=== PATIENT | female | born 1980 | race Caucasian/White ===

== ENCOUNTER 2021-06-19 20:53 | Emergency (ER) | payer MEDICAID, OTHER ==
[~2021-06-19] VITALS: Ht 165.1 cm; Wt 68.0 kg
[2021-06-19] MEDS ORDERED: methylPREDNISolone SOD SUCC 125 MG/2 ML VL IV ONE (21:00)
[2021-06-19] MEDS ORDERED: MAGNESIUM SULFATE 1GM/100ML 200 ML IV ONE (21:02)
[2021-06-19] MEDS ORDERED: IPRATROPIUM BROM 0.5 MG/2.5ML INH SOL NEB ONE ×2 (21:15)
[2021-06-19] MEDS ORDERED: ALBUTEROL SULF 2.5 MG/0.5ML(0.5%) NEB SOLN NEB ONE ×2 (21:15)
[2021-06-19 21:37] LABS: Basophils # (auto) 0.1 10 ^3/uL (0-0.2); Basophils % (auto) 1.2 % (0.0-2.0); Eosinophils # (auto) 1.4 10 ^3/uL (0-0.8); Eosinophils % (auto) 13.9 % (0.0-7.0); Hematocrit 42.6 % (36.0-46.0); Hemoglobin 14.1 g/dL (12.2-16.2); Lymphocytes # (auto) 2.7 10 ^3/uL (0.4-5.4); Lymphocytes % (auto) 26.6 % (10.0-50.0); Mean Corpuscular Hemoglobin 29.7 pg (28.0-32.0); Mean Corpuscular Hgb Conc. 33.1 g/dL (32.0-36.0); Mean Corpuscular Volume 89.7 fL (80.0-100.0); Monocytes # (auto) 0.7 10 ^3/uL (0-1.3); Monocytes % (auto) 6.8 % (0.0-12.0); Neutrophils # (auto) 5.2 10 ^3/uL (1.6-8.6); Neutrophils % (auto) 51.5 % (37.0-80.0); Nucleated Red Blood Cells % 0.1 %; Red Blood Cells 4.75 10^6/uL (4.0-5.20); Red Cell Distribution Width 14.7 % (11.8-14.3); White Blood Cell 10.2 10^3/uL (4.4-10.8)
[2021-06-19 21:43] LABS: INR 0.99 (0.9-1.15)
[2021-06-19] MEDS ORDERED: ACETAMINOPHEN 325 MG TAB PO ONE (21:45)
[2021-06-19] MEDS ORDERED: KETOROLAC TROMETH 30 MG/ML 1ML VIAL IV ONE (21:45)
[2021-06-19 21:50] LABS: Calcium 8.8 mg/dL (8.5-10.1); Chloride 102 mmol/L (98-107); Potassium 3.3 mmol/L (3.5-5.1); Sodium 139 mmol/L (136-145)
[2021-06-19 21:59] LABS: Alanine Aminotransferase 23 U/L (13-56); Albumin 3.6 g/dL (3.4-5.0); Alkaline Phosphatase 99 U/L (45-117); Anion Gap 5 (5-15); Aspartate Aminotransferase 15 U/L (15-37); BUN/Creatinine Ratio 7.8; Blood Urea Nitrogen 6 mg/dL (7-18); Carbon Dioxide 32 mmol/L (21-32); GFR African American 106 mL/min; GFR Non-African American 87 mL/min; Glucose 135 mg/dL (74-106)
[2021-06-19 22:00] LABS: Bilirubin, Total 0.3 mg/dL (0.2-1.0); Magnesium 2.2 mg/dL (1.6-2.6); Total Protein 7.5 g/dL (6.4-8.2)
[2021-06-20] MEDS: MAGNESIUM SULFATE 1GM/100ML 100 ML IV SCH ×2 (00:01→00:02)
[2021-06-20 01:15] VITALS: BP 141/88
== END 2021-06-20 02:05 | disposition home or self-care (01) ==
LOC: EDBD 20:53 → ER 20:53
DX: R06.02 Shortness of breath (principal); J45.909 Unspecified asthma, uncomplicated
CPT/HCPCS: 36415; 36600; 71045; 80053; 82805; 83735; 84484; 84702; 85025; 85610; 94640; 94660; 96365; 96366; 96375; 99284; J1885; J2930; J3475

== ENCOUNTER 2022-03-28 06:54 | Emergency (ER) | payer OTHER ==
[~2022-03-28] VITALS: Ht 157.5 cm; Wt 72.6 kg
[2022-03-28 07:26] LABS: Basophils # (auto) 0.1 10 ^3/uL (0-0.2); Basophils % (auto) 0.6 % (0.0-2.0); Eosinophils # (auto) 1.3 10 ^3/uL (0-0.8); Eosinophils % (auto) 13.2 % (0.0-7.0); Hematocrit 39.5 % (36.0-46.0); Hemoglobin 13.2 g/dL (12.2-16.2); Lymphocytes % (auto) 20.4 % (10.0-50.0); Mean Corpuscular Hemoglobin 28.5 pg (28.0-32.0); Mean Corpuscular Hgb Conc. 33.3 g/dL (32.0-36.0); Mean Corpuscular Volume 85.7 fL (80.0-100.0); Monocytes # (auto) 0.9 10 ^3/uL (0-1.3); Neutrophils # (auto) 5.6 10 ^3/uL (1.6-8.6); Neutrophils % (auto) 56.8 % (37.0-80.0); Red Blood Cells 4.61 10^6/uL (4.0-5.20); Red Cell Distribution Width 14.3 % (11.8-14.3); White Blood Cell 9.8 10^3/uL (4.4-10.8)
[2022-03-28] MEDS ORDERED: IPRATROPIUM BROM 0.5 MG/2.5ML INH SOL NEB ONE (07:45)
[2022-03-28] MEDS ORDERED: KETOROLAC TROMETH 30 MG/ML 1ML VIAL IV ONE (07:45)
[2022-03-28] MEDS ORDERED: ALBUTEROL SULF 2.5 MG/0.5ML(0.5%) NEB SOLN NEB ONE (07:45)
[2022-03-28] MEDS ORDERED: DexAMETHasone SOD PHOS 10MG/1ML VIAL INJ IV ONE (07:45)
[2022-03-28 07:48] LABS: INR 0.96 (0.9-1.15)
[2022-03-28 07:49] LABS: Albumin 3.3 g/dL (3.4-5.0); BUN/Creatinine Ratio 14.1; Calcium 8.2 mg/dL (8.5-10.1); Magnesium 2.1 mg/dL (1.6-2.6); Potassium 5.5 mmol/L (3.5-5.1)
[2022-03-28 07:52] LABS: Bilirubin, Total 0.4 mg/dL (0.2-1.0); Total Protein 6.8 g/dL (6.4-8.2)
[2022-03-28] MEDS ORDERED: MORPHINE SULFATE INJ 2 MG/ml SYRG IV ONE (08:45)
[2022-03-28] MEDS: MAGNESIUM SULFATE 1GM/100ML 100 ML IV SCH ×2 (08:58→10:00)
[2022-03-28] MEDS ORDERED: AZITHROMYCIN 500MG/ 250ML 250 ML IV ONE (09:00)
[2022-03-28] MEDS ORDERED: ALBU108A5 IN ×2 (10:11→12:26)
[2022-03-28] MEDS ORDERED: AZIT250T9 PO ×2 (10:11→12:26)
[2022-03-28] MEDS ORDERED: PRED20TA2 PO ×2 (10:13→12:26)
[2022-03-28 12:00] VITALS: BP 126/71
[2022-03-28] MEDS ORDERED: TIOT17SP IN (12:26)
[2022-03-28] MEDS ORDERED: FLUT1AER6 IN (12:37)
== END 2022-03-28 13:05 | disposition home or self-care (01) ==
LOC: ER 06:54 → EDBD 06:54 → ER 13:05
DX: J45.901 Unspecified asthma with (acute) exacerbation (principal); Z20.822 Contact with and (suspected) exposure to COVID-19
CPT/HCPCS: 36415; 36600; 71045; 80053; 82805; 83735; 83880; 84484; 85025; 85610; 85730; 87426; 93005; 94640; 94660; 96365; 96366; 96368; 96375; 99285; J0456; J1100; J1885; J2270; J3475; J7644

== ENCOUNTER 2022-07-09 19:27 | Emergency (ER) | payer OTHER ==
[~2022-07-09] VITALS: Ht 160 cm; Wt 72.5 kg
[~2022-07-09 19:27] MED LIST: ALBU108A5 IN; AZIT250T9 PO; FLUT1AER6 IN; PRED20TA2 PO; TIOT17SP IN
[2022-07-09] MEDS ORDERED: IPRATROPIUM BROM 0.5 MG/2.5ML INH SOL NEB ONE (20:30)
[2022-07-09] MEDS ORDERED: ALBUTEROL SULF 2.5 MG/0.5ML(0.5%) NEB SOLN NEB ONE (20:30)
[2022-07-09] MEDS ORDERED: DexAMETHasone SOD PHOS 10MG/1ML VIAL INJ IV ONE (20:30)
[2022-07-09] MEDS ORDERED: MAGNESIUM SULFATE 1GM/100ML 100 ML IV ONE (20:30)
[2022-07-09 20:43] LABS: Basophils # (auto) 0.1 10 ^3/uL (0-0.2); Basophils % (auto) 0.6 % (0.0-2.0); Eosinophils # (auto) 1.3 10 ^3/uL (0-0.8); Eosinophils % (auto) 9.4 % (0.0-7.0); Hematocrit 41.2 % (36.0-46.0); Lymphocytes # (auto) 2.4 10 ^3/uL (0.4-5.4); Lymphocytes % (auto) 17.7 % (10.0-50.0); Mean Corpuscular Hemoglobin 29.2 pg (28.0-32.0); Mean Corpuscular Hgb Conc. 33.9 g/dL (32.0-36.0); Mean Corpuscular Volume 86.2 fL (80.0-100.0); Monocytes # (auto) 0.9 10 ^3/uL (0-1.3); Monocytes % (auto) 7.1 % (0.0-12.0); Neutrophils # (auto) 8.7 10 ^3/uL (1.6-8.6); Neutrophils % (auto) 65.2 % (37.0-80.0); Red Blood Cells 4.78 10^6/uL (4.0-5.20); Red Cell Distribution Width 13.9 % (11.8-14.3); White Blood Cell 13.4 10^3/uL (4.4-10.8)
[2022-07-09 20:55] LABS: Albumin 3.7 g/dL (3.4-5.0); Calcium 8.7 mg/dL (8.5-10.1); Potassium 3.8 mmol/L (3.5-5.1)
[2022-07-09 20:59] LABS: BUN/Creatinine Ratio 13.2; Bilirubin, Total 0.5 mg/dL (0.2-1.0); Total Protein 6.8 g/dL (6.4-8.2)
[2022-07-09 23:02] VITALS: BP 119/81
== END 2022-07-09 23:15 | disposition home or self-care (01) ==
LOC: EDBD 19:27 → ER 19:31
DX: J45.901 Unspecified asthma with (acute) exacerbation (principal); G89.29 Other chronic pain; M54.9 Dorsalgia, unspecified
CPT/HCPCS: 36415; 71045; 80053; 85025; 94640; 96365; 96375; 99284; J1100; J3475; J7644

== ENCOUNTER 2023-07-23 10:49 | Inpatient (IN) | payer OTHER ==
[2023-07-22] MEDS: SODIUM CHLORIDE 0.9% 1,000 ML IV SCH (23:05)
[~2023-07-23] VITALS: Ht 157.5 cm; Wt 81.7 kg
[~2023-07-23 10:49] MED LIST changes: +AZIT-43 PO; -AZIT250T9 PO
[2023-07-23] MEDS ORDERED: SODIUM CHLORIDE 0.9% 1,000 ML IV ONE (11:30)
[2023-07-23] MEDS ORDERED: ONDANSETRON HCL 4 MG/2 ML VIAL IV ONE (11:30)
[2023-07-23] MEDS ORDERED: PANTOPRAZOLE 40 MG/10 ML VIAL INJ IV ONE (11:30)
[2023-07-23] MEDS ORDERED: HYDROmorphone HCL 2 MG/ML VL/or syr IV ONE (11:30)
[2023-07-23] MEDS ORDERED: LORazepam 2MG/ML-1ML VIAL IV ONE (11:30)
[2023-07-23 12:06] LABS: Basophils # (auto) 0 10 ^3/uL (0-0.2); Eosinophils # (auto) 0 10 ^3/uL (0-0.8); Lymphocytes # (auto) 0.9 10 ^3/uL (0.4-5.4); Monocytes # (auto) 0.7 10 ^3/uL (0-1.3)
[2023-07-23 12:08] LABS: Basophils % (auto) 0.3 % (0.0-2.0); Eosinophils % (auto) 0.2 % (0.0-7.0); Hematocrit 45.4 % (36.0-46.0); Lymphocytes % (auto) 8.2 % (10.0-50.0); Mean Corpuscular Hemoglobin 30.8 pg (28.0-32.0); Mean Corpuscular Hgb Conc. 35.3 g/dL (32.0-36.0); Mean Corpuscular Volume 87.1 fL (80.0-100.0); Monocytes % (auto) 6.7 % (0.0-12.0); Neutrophils # (auto) 9.1 10 ^3/uL (1.6-8.6); Neutrophils % (auto) 84.6 % (37.0-80.0); Red Blood Cells 5.21 10^6/uL (4.0-5.20); Red Cell Distribution Width 14.3 % (11.8-14.3); White Blood Cell 10.8 10^3/uL (4.4-10.8)
[2023-07-23 12:21] LABS: INR 1.15 (0.9-1.15)
[2023-07-23 12:27] LABS: Chloride 87 mmol/L (98-107); Potassium 3.1 mmol/L (3.5-5.1); Sodium 129 mmol/L (136-145)
[2023-07-23 12:28] LABS: Anion Gap 14 (5-15); Calcium 9.6 mg/dL (8.7-10.4); Carbon Dioxide 28 mmol/L (20-30)
[2023-07-23 12:33] LABS: BUN/Creatinine Ratio 8.6 (10.0-20.0); Blood Alcohol < 3.0 mg/dL (<10); Blood Urea Nitrogen 5 mg/dL (9-23); Glucose 97 mg/dL (74-106); Lipase 119 U/L (12-53); Magnesium 1.5 mg/dL (1.6-2.6)
[2023-07-23] MEDS ORDERED: IOHEXOL 300 MG/ML 100ML BOTTLE IJ ONE (13:19)
[2023-07-23] MEDS ORDERED: OMNIPAQUE 12mg/ml 500ml ORAL SOLUTION PO ONE (13:19)
[2023-07-23] MEDS ORDERED: POTASSIUM CHL 20MEQ/100ML 100 ML IV ONE (15:15)
[2023-07-23] MEDS ORDERED: POTASSIUM CHL 20 Meq TABLET PO ONE (15:15)
[2023-07-23] MEDS ORDERED: metroNIDAZOLE 500MG/100ML 100 ML IV ONE (16:30)
[2023-07-23] MEDS ORDERED: levoFLOXacin 750MG 150 ML IV ONE (16:30)
[2023-07-23] MEDS ORDERED: IOHEXOL 350 MG/ML 100ML IJ ONE (16:37)
[2023-07-23] MEDS ORDERED: D5W/SOD CHL 0.45%/KCL 20MEQ 1,000 ML IV ONE (17:30)
[2023-07-23] MEDS ORDERED: MORPHINE SULFATE 4 MG/ML SYR/VIAL IV ONE (19:30)
[2023-07-23 19:32] VITALS: PULSE 118; RESP 20; O2SAT 97
[2023-07-23] MEDS: ONDANSETRON HCL 4 MG/2 ML VIAL IV PRN (19:37)
[2023-07-23] MEDS ORDERED: MORPHINE SULFATE INJ 2 MG/ml SYRG IV PRN (20:00)
[2023-07-23] MEDS: HYDROmorphone HCL 2 MG/ML VL/or syr IV PRN (22:47)
[2023-07-23 23:20] VITALS: PULSE 88; RESP 13; O2SAT 90
[2023-07-24] MEDS: PIPERACILLIN-TAZOB 3.375GM 100 ML IV SCH ×3 (01:41→22:00)
[2023-07-24] MEDS: HYDROmorphone HCL 2 MG/ML VL/or syr IV PRN ×11 (01:42→22:11)
[2023-07-24] MEDS: SODIUM CHLOR 0.9% PF (SALINE LOCK) 10ML VIAL/SYR IV SCH ×3 (01:43→22:00)
[2023-07-24] MEDS: ONDANSETRON HCL 4 MG/2 ML VIAL IV PRN ×2 (04:00→17:36)
[2023-07-24 04:45] LABS: Amphetamine Screen, Urine Neg (NEGATIVE); Barbiturate Scree,Urine Neg (NEGATIVE); Benzodiazephine Screen, Urine Pos (NEGATIVE); Cocaine Screen, Urine Neg (NEGATIVE)
[2023-07-24 04:46] LABS: Cannabinoid Screen, Urine Pos (NEGATIVE); Opiate Scree,Urine Pos (NEGATIVE); Phencyclidine Screen, Urine Neg (NEGATIVE)
[2023-07-24 04:49] LABS: Urine Bacteria NONE SEEN /hpf (None Seen); Urine Blood Negative /uL (Negative); Urine Clarity Clear (Clear); Urine Color Colorless (Yellow); Urine Protein, UAD Negative (Negative); Urine Specific Gravity 1.011 (1.001-1.035); Urine Urobilinogen Normal (Negative); Urine WBC 1 /hpf (0 - 5); Urine pH 6.5 (5.0-8.0)
[2023-07-24 06:42] LABS: Basophils # (auto) 0 10 ^3/uL (0-0.2); Basophils % (auto) 0.5 % (0.0-2.0); Eosinophils # (auto) 0.1 10 ^3/uL (0-0.8); Eosinophils % (auto) 1.2 % (0.0-7.0); Hematocrit 37.7 % (36.0-46.0); Hemoglobin 13.2 g/dL (12.2-16.2); Lymphocytes # (auto) 1.8 10 ^3/uL (0.4-5.4); Lymphocytes % (auto) 19.2 % (10.0-50.0); Mean Corpuscular Hemoglobin 30.7 pg (28.0-32.0); Mean Corpuscular Hgb Conc. 34.9 g/dL (32.0-36.0); Mean Corpuscular Volume 87.9 fL (80.0-100.0); Monocytes # (auto) 0.8 10 ^3/uL (0-1.3); Monocytes % (auto) 9.3 % (0.0-12.0); Neutrophils # (auto) 6.4 10 ^3/uL (1.6-8.6); Neutrophils % (auto) 69.8 % (37.0-80.0); Red Blood Cells 4.29 10^6/uL (4.0-5.20); Red Cell Distribution Width 14.1 % (11.8-14.3); White Blood Cell 9.1 10^3/uL (4.4-10.8)
[2023-07-24 07:08] LABS: Alanine Aminotransferase 43 U/L (7-40); Albumin 3.8 g/dL (3.2-4.8); Alkaline Phosphatase 57 U/L (46-116); Anion Gap 9 (5-15); Aspartate Aminotransferase 64 U/L (13-40); Bilirubin, Total 0.7 mg/dL (0.2-1.0); Calcium 8.5 mg/dL (8.7-10.4); Carbon Dioxide 29 mmol/L (20-30); Chloride 96 mmol/L (98-107); Glucose 120 mg/dL (74-106); Total Protein 5.5 g/dL (5.7-8.2)
[2023-07-24 07:15] LABS: Sodium 134 mmol/L (136-145)
[2023-07-24 07:16] LABS: BUN/Creatinine Ratio 8.1 (10.0-20.0); Blood Urea Nitrogen < 5 mg/dL (9-23); Potassium 2.9 mmol/L (3.5-5.1)
[2023-07-24 07:45] VITALS: PULSE 84; RESP 18; O2SAT 97
[2023-07-24] MEDS ORDERED: POTASSIUM CHL 20MEQ/100ML 100 ML IV ONE (08:30)
[2023-07-24] MEDS ORDERED: POTASSIUM CHL 20MEQ/100ML 100 ML IV SCH (09:15)
[2023-07-24] MEDS ORDERED: HYDROmorphone HCL 2 MG/ML VL/or syr IV ONE (10:30)
[2023-07-24] MEDS: SODIUM CHLORIDE 0.9% 1,000 ML IV SCH ×2 (11:28→17:41)
[2023-07-24] MEDS: MAGNESIUM SULFATE 1GM/100ML 100 ML IV SCH ×2 (11:44→14:00)
[2023-07-24] MEDS ORDERED: POTASSIUM CHL 20MEQ/50ML 50 ML IV ONE (12:22)
[2023-07-24] MEDS ORDERED: metroNIDAZOLE 500MG/100ML 100 ML IV ONE (12:26)
[2023-07-24] MEDS ORDERED: MEPERIDINE HCL (25 MG/ML) 1ML VIAL ONE (12:38)
[2023-07-24] MEDS ORDERED: fentaNYL CITRATE 100 MCG/2 ML VL ONE ×3 (12:38→12:47)
[2023-07-24] MEDS ORDERED: MIDAZOLAM HCL 2MG/2ML 2ml VIAL (1mg/ml) ONE (12:38)
[2023-07-24] MEDS ORDERED: HYDROmorphone HCL 2 MG/ML VL/or syr ONE (13:04)
[2023-07-24] MEDS ORDERED: SUGAMMADEX 200mg/2ml Vial (100MG/ML) IV ONE (14:09)
[2023-07-24 14:26] VITALS: PULSE 82; RESP 14; O2SAT 97
[2023-07-24] MEDS ORDERED: MIDAZOLAM HCL 2MG/2ML 2ml VIAL (1mg/ml) IV PRN (14:30)
[2023-07-24] MEDS ORDERED: MORPHINE SULFATE 4 MG/ML SYR/VIAL IV PRN (14:30)
[2023-07-24] MEDS ORDERED: ONDANSETRON HCL 4 MG/2 ML VIAL IV PRN (14:30)
[2023-07-24] MEDS ORDERED: LABETALOL HCL 5 MG/ML 4ML SYRINGE IV PRN (14:30)
[2023-07-24] MEDS ORDERED: KETOROLAC TROMETH 30 MG/ML 1ML VIAL IV ONE (14:30)
[2023-07-24] MEDS ORDERED: ePHEDrine SULFATE 50 MG/ML AMP IV PRN (14:30)
[2023-07-24] MEDS ORDERED: fentaNYL CITRATE 100 MCG/2 ML VL IV PRN (14:30)
[2023-07-24] MEDS ORDERED: NALOXONE HCL 0.4 MG/ML VIAL IV ONE (15:30)
[2023-07-24] MEDS ORDERED: HYDROmorphone HCL 2 MG/ML VL/or syr IV PRN (15:30)
[2023-07-24 17:00] VITALS: BP 137/95; PULSE 81; RESP 18; TEMP 98; O2SAT 94; O2SAT 96
[2023-07-24 20:00] VITALS: PULSE 94; RESP 18; O2SAT 2
[2023-07-24 22:00] VITALS: BP 134/88; PULSE 94; RESP 18; TEMP 98.7; O2SAT 95
[2023-07-25] VITALS (7 sets, daily range): BP systolic 136–154; BP diastolic 82–97; PULSE 72–98; RESP 16–22; TEMP 97.8–98.9; O2SAT 2–98
[2023-07-25] MEDS: HYDROmorphone HCL 2 MG/ML VL/or syr IV PRN ×10 (00:13→22:37)
[2023-07-25] MEDS: ONDANSETRON HCL 4 MG/2 ML VIAL IV PRN ×3 (01:03→15:10)
[2023-07-25] MEDS: PIPERACILLIN-TAZOB 3.375GM 100 ML IV SCH ×3 (05:32→22:00)
[2023-07-25] MEDS: SODIUM CHLOR 0.9% PF (SALINE LOCK) 10ML VIAL/SYR IV SCH ×3 (06:00→22:00)
[2023-07-25 07:03] LABS: Alanine Aminotransferase 35 U/L (7-40); Albumin 3.5 g/dL (3.2-4.8); Alkaline Phosphatase 57 U/L (46-116); Anion Gap 8 (5-15); Aspartate Aminotransferase 37 U/L (13-40); BUN/Creatinine Ratio 9.3 (10.0-20.0); Blood Urea Nitrogen 5 mg/dL (9-23); Carbon Dioxide 27 mmol/L (20-30); Chloride 103 mmol/L (98-107); Glucose 116 mg/dL (74-106); Magnesium 1.7 mg/dL (1.6-2.6); Potassium 3.2 mmol/L (3.5-5.1); Sodium 138 mmol/L (136-145)
[2023-07-25 07:04] LABS: Bilirubin, Total 0.7 mg/dL (0.2-1.0); Total Protein 5.1 g/dL (5.7-8.2)
[2023-07-25 07:43] LABS: Basophils # (auto) 0 10 ^3/uL (0-0.2); Basophils % (auto) 0.1 % (0.0-2.0); Eosinophils # (auto) 0 10 ^3/uL (0-0.8); Hematocrit 37.1 % (36.0-46.0); Hemoglobin 12.7 g/dL (12.2-16.2); Lymphocytes # (auto) 0.9 10 ^3/uL (0.4-5.4); Lymphocytes % (auto) 7.8 % (10.0-50.0); Mean Corpuscular Hemoglobin 30.7 pg (28.0-32.0); Mean Corpuscular Hgb Conc. 34.4 g/dL (32.0-36.0); Mean Corpuscular Volume 89.2 fL (80.0-100.0); Monocytes # (auto) 0.8 10 ^3/uL (0-1.3); Neutrophils # (auto) 10.2 10 ^3/uL (1.6-8.6); Neutrophils % (auto) 85.1 % (37.0-80.0); Nucleated Red Blood Cells % 0.1 %; Red Blood Cells 4.15 10^6/uL (4.0-5.20); Red Cell Distribution Width 14.2 % (11.8-14.3)
[2023-07-26] MEDS: HYDROmorphone HCL 2 MG/ML VL/or syr IV PRN ×6 (01:01→13:07)
[2023-07-26 05:00] VITALS: BP 135/90; PULSE 77; RESP 14; TEMP 98.1; O2SAT 92
[2023-07-26] MEDS: PIPERACILLIN-TAZOB 3.375GM 100 ML IV SCH ×2 (06:04→14:00)
[2023-07-26] MEDS: SODIUM CHLOR 0.9% PF (SALINE LOCK) 10ML VIAL/SYR IV SCH ×2 (06:09→14:06)
[2023-07-26 07:17] LABS: Basophils # (auto) 0 10 ^3/uL (0-0.2); Basophils % (auto) 0.3 % (0.0-2.0); Eosinophils # (auto) 0.1 10 ^3/uL (0-0.8); Eosinophils % (auto) 0.6 % (0.0-7.0); Hematocrit 39.7 % (36.0-46.0); Hemoglobin 13.6 g/dL (12.2-16.2); Lymphocytes # (auto) 1.4 10 ^3/uL (0.4-5.4); Lymphocytes % (auto) 13.2 % (10.0-50.0); Mean Corpuscular Hemoglobin 30.7 pg (28.0-32.0); Mean Corpuscular Hgb Conc. 34.2 g/dL (32.0-36.0); Mean Corpuscular Volume 89.9 fL (80.0-100.0); Monocytes % (auto) 9.4 % (0.0-12.0); Neutrophils % (auto) 76.5 % (37.0-80.0); Red Blood Cells 4.41 10^6/uL (4.0-5.20); Red Cell Distribution Width 14.4 % (11.8-14.3); White Blood Cell 10.4 10^3/uL (4.4-10.8)
[2023-07-26 07:36] LABS: Alanine Aminotransferase 30 U/L (7-40); Alkaline Phosphatase 60 U/L (46-116); Anion Gap 9 (5-15); Calcium 8.4 mg/dL (8.7-10.4); Carbon Dioxide 27 mmol/L (20-30); Chloride 98 mmol/L (98-107); Glucose 96 mg/dL (74-106); Sodium 134 mmol/L (136-145)
[2023-07-26 07:37] LABS: Albumin 3.8 g/dL (3.2-4.8)
[2023-07-26 07:38] LABS: Aspartate Aminotransferase 29 U/L (13-40); Bilirubin, Total 0.8 mg/dL (0.2-1.0); Total Protein 5.6 g/dL (5.7-8.2)
[2023-07-26 08:00] VITALS: PULSE 70; RESP 16; O2SAT 2
[2023-07-26 08:14] LABS: BUN/Creatinine Ratio 9.1 (10.0-20.0); Blood Urea Nitrogen < 5 mg/dL (9-23)
[2023-07-26 08:15] LABS: Potassium 2.8 mmol/L (3.5-5.1)
[2023-07-26] MEDS: POTASSIUM CHL 20MEQ/100ML 100 ML IV SCH ×2 (08:58→11:25)
[2023-07-26 09:00] VITALS: BP 133/94; PULSE 70; RESP 16; TEMP 98.2; O2SAT 94
[2023-07-26] MEDS ORDERED: POTASSIUM CHL 20 Meq TABLET PO ONE (09:00)
[2023-07-26 09:56] VITALS: TEMP 36.8
[2023-07-26] MEDS: SODIUM CHLORIDE 0.9% 1,000 ML IV SCH (11:25)
[2023-07-26 13:37] VITALS: BP 133/94; PULSE 76; RESP 18
== END 2023-07-26 14:36 | disposition home health service (06) | DRG 329 ==
LOC: ER 10:49 → EDBD 10:49 → UNDOADMIN 18:15 → TELE 18:15 → OVERFLOW 18:15 → WEST WING 07-24 16:10
PROVIDERS: ADMIT Student in an Organized Health Care Education/Training Program; ATTEND Student in an Organized Health Care Education/Training Program
PROC: 0DB80ZZ Excision of Small Intestine, Open Approach (ICD-10-PCS; 2023-07-24)
PROC: 0DN80ZZ Release Small Intestine, Open Approach (ICD-10-PCS; principal; 2023-07-24 12:47)
DX: K65.9 Peritonitis, unspecified (principal); K56.2 Volvulus; K44.0 Diaphragmatic hernia with obstruction, without gangrene; J98.11 Atelectasis; K56.7 Ileus, unspecified; K44.9 Diaphragmatic hernia without obstruction or gangrene; J45.909 Unspecified asthma, uncomplicated; K66.0 Peritoneal adhesions (postprocedural) (postinfection); J44.9 Chronic obstructive pulmonary disease, unspecified; E87.6 Hypokalemia; Z79.899 Other long term (current) drug therapy
CPT/HCPCS: 36415; 71045; 74018; 74177; 80048; 80053; 80307; 80320; 81001; 83605; 83690; 83735; 84484; 84702; 85025; 85610; 85730; 86850; 86900; 86901; 87040; 87070; 87075; 87205; 96365; 96367; 96375; 96376; C9113; G0378; J2250; J2405; J2543; J3480; J3490

== ENCOUNTER 2025-06-20 15:08 | Inpatient (IN) | payer OTHER ==
[~2025-06-20] VITALS: Ht 157.5 cm; Wt 67.0 kg
[~2025-06-20 15:08] MED LIST changes: -AZIT-43 PO
[2025-06-20 17:55] LABS: Hematocrit 46.0 % (36.0-46.0); Hemoglobin 16.2 g/dL (12.2-16.2); Mean Corpuscular Hemoglobin 30.2 pg (28.0-32.0); Mean Corpuscular Volume 86.0 fL (80.0-100.0); Nucleated Red Blood Cells % 0.1 %
[2025-06-20 18:02] LABS: Chloride 104 mmol/L (98-107); Sodium 142 mmol/L (136-145)
[2025-06-20 18:03] LABS: Anion Gap 14 (5-15); Carbon Dioxide 24 mmol/L (20-31)
[2025-06-20 18:04] LABS: Calcium 9.6 mg/dL (8.7-10.4)
[2025-06-20 18:08] LABS: BUN/Creatinine Ratio 14.7 (10.0-20.0); Blood Urea Nitrogen 10 mg/dL (9-23); Glucose 104 mg/dL (74-106); Potassium 3.0 mmol/L (3.5-5.1)
[2025-06-20 18:09] LABS: Lipase 58 U/L (12-53)
[2025-06-20] MEDS: ONDANSETRON HCL 4 MG/2 ML VIAL IV ONE (18:20)
[2025-06-20] MEDS: HYDROmorphone HCL 2 MG/ML VL/or syr IV ONE ×2 (18:21→23:59)
[2025-06-20] MEDS: IOHEXOL 300 MG/ML 100ML BOTTLE IJ ONE (18:36)
[2025-06-20 19:18] LABS: Urine Protein, UAD Negative (Negative)
--- NOTE | 2025-06-20 19:23 | DVH ---
Exam: CT CT AB PEL WITH IV CON ONLY History: Rule out SBO Comparison Study: CT CT ABD PELVIS W CON-ORAL IV on DOS: 07/23/23 TECHNIQUE: Multidetector CT of the abdomen pelvis with IV contrast. Axial, coronal and sagittal multi planar reformats were obtained from the axial data set by the technologist. Radiation Dose Information: CT Dose: CTDI volume is 12.58 mGy. Dose-length product is 3.39 mGy*cm FINDINGS: The lung bases are clear. Partially visualized heart is unremarkable. Liver, spleen, gallbladder, pancreas adrenal glands unremarkable. Kidneys, ureters and urinary bladderare unremarkable. Heterogeneous appearance of the uterus. Other jenkins, uterus and adnexa are unremarkable. Small to moderate size hiatal hernia. Mild gastric wall thickening. mild wall Thickening of proximal small bowel loops with fluid-filled Distended Proximal Small bowel loops measuring up to 3.1 cm. The remainder of the small bowel loops unremarkable fluid-filled nondistended Distal Small bowel loops. M ultiple small Hypodensities within the distal transverse colon measuring up to 8 mm which may represe nt ingested material/foreign bodies. Questionable Postsurgical changes of right hemiabdomen Small midline upper to mid abdominal wall hernia containing partial wall of gas-filled adjacent colon without evidence of obstruction or strangulation. No evidence of intraperitoneal free air or free fluid. No evidence of aortic aneurysm or dissection. No significant lymphadenopathy. Soft tissues are unremarkable. Grade 2 anterolisthesis of L5 on S1 with bilateral L5 chronic pars def ect. No evidence of acute osseous abnormalities. IMPRESSION: Wall thickening of the stomach and proximal small bowel loops with fluid-filled mildly distended prox imal small bowel measuring up to 3.1 cm. Correlate for gastroenteritis with associated ileus. Bowel obstruction can not be completely excluded. Small midline ventral upper to mid abdominal hernia containing a partial wall of the adjacent colon w ithout evidence of obstruction or strangulation. There appears to be postsurgical changes of the right hemicolon. Hyperdense foci within the distal tr ansverse colon which may represent foreign body/Ingested material measuring up to 8 mm.
--- NOTE | 2025-06-20 20:50 | ED.PDOC ---
GI ASSESSMENT HPI Comments This patient is a 44-year-old female who arrives the ED for evaluation of [id number] diffuse abdominal pain for the past several days. Patient's history is remarkable for multiple intra-abdominal concerns with bowel resection procedures performed. Patient has had a ventral hernia in the past and states that she feels like the hernia may be causing constriction of stomach contents. Patient states intermittent nausea and vomiting. Patient denies fever. Vital signs were stable. Chief Complaint: Abdominal Pain Time Seen by MD: 17:29 Primary Care Provider: Niecy Reviewed Notes: Nurses Notes Allergies: Coded Allergies: NO KNOWN ALLERGIES (Unverified , 06/19/21) Home Meds Active Scripts Fluticasone-Salmeterol (Wixela Inhub 250-50 Mcg/Dose) 1 Aer Aer, 1 AER IN DAILY for 30 Days, #1 AER 2 Refills Prov:HOLLY CROWE MD 03/28/22 Tiotropium [place] Monohydrate (Spiriva Respimat) 2.5 Mcg/Act Spr, 2.5 MCG IN DAILY PRN for 30 Days, #1 UNIT 2 Refills Prov:HOLLY CROWE MD 03/28/22 Prednisone (Prednisone) 20 Mg Tab, 5 MG PO DAILY for 10 Days, #10 TAB Prov:HOLLY CROWE MD 03/28/22 Albuterol Sulfate (Albuterol Sulfate Hfa) 108 Mcg/Act Aer, 108 MCG IN Q4HP PRN for 10 Days, #1 AER Prov:HOLLY CROWE MD 03/28/22 Information Source: Patient, Spouse Mode of Arrival: Ambulatory Timing: Days Duration: Since onset Prehospital treatment: Pain Meds Quality: Aching, Cramping Vomitus: Soft, Watery Severity: Severe Recent: None Recent Hx of: Abdominal Surgery Pain Location: Diffuse, Epigastric, Periumbilical Modifying Factors: Food Associated sign and symptoms: Nausea, Vomiting, Abdominal Pain Past Medical History PAST MEDICAL HISTORY: Asthma Past Medical History (Other): History of intra-abdominal concerns Surgical History: Denies all surgeries Surgical History (Other): History of intra-abdominal procedures including multiple bowel resections. 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: Denies all 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 Hx Family History Family History: Reviewed,noncontributory to illness Social History Smoker: Non-Smoker Alcohol: Denies ETOH Use Drugs: Denies Drug Use Lives In: Home Constitutional: denies: chills, diaphoresis, fatigue, fever, malaise, sweats, weakness, others EENTM: denies: blurred vision, double vision, ear bleeding, ear discharge, ear drainage, ear pain, ear ringing, eye pain, eye redness, hearing loss, mouth pain, mouth swelling, nasal discharge, nose bleeding, nose congestion, nose pain, photophobia, tearing, throat pain, throat swelling, voice changes, others Respiratory: denies: cough, hemoptysis, orthopnea, SOB at rest, shortness of breath, SOB with excertion, stridor, wheezing, others Cardiovascular: denies: chest pain, dizzy spells, diaphoresis, Dyspnea on exertion, edema, irregular heart beat, left arm pain, lightheadedness, palpitations, PND, syncope, others Gastrointestinal: reports: abdominal pain, nausea, vomiting; denies: abdomen distended, blood streaked bowels, constipated, diarrhea, dysphagia, difficulty swallowing, hematemesis, melena, poor appetite, poor fluid intake, rectal bleeding, rectal pain, others Genitourinary: denies: abnormal vagina bleeding, burning, dyspareunia, dysuria, flank pain, frequency, hematuria, incontinence, pain, , vagina discharge, urgency, others Neurological: denies: dizziness, fainting, headache, left sided numbness, left sided weakness, numbness, paresthesia, pre-existing deficit, right sided numbness, right sided weakness, seizure, speech problems, tingling, tremors, weakness, others Musculoskeletal: denies: back pain, gout, joint pain, joint swelling, muscle pain, muscle stiffness, neck pain, others Integumetry: denies: bruises, change in color, change in hair/nails, dryness, laceration, lesions, lumps, rash, wounds, others Allergic/Immunocompromised: denies: Difficulty Healing, Frequent Infections, Hives, Itching, others Hematologic/Lymphatic: denies: anemia, blood clots, easy bleeding, easy bruising, swollen glands, others Endocrine: denies: excessive hunger, excessive sweating, excessive thirst, excessive urination, flushing, intolerance to cold, intolerance to heat, unexplained weight gain, unexplained weight loss, others Psychiatric: denies: anxiety, bipolar disorder, depression, hopeless, panic disorder, schizophrenia, sleepless, suicidal, others Physical Exam General Appearance: Moderate Distress (Moderate to significant distress due to belly pain concerns.), Normal HEENT: Normal ENT Inspection, Pharynx Normal, TMs Normal Neck: Full Range of Motion, Non-Tender, Normal, Normal Inspection Respiratory: Chest Non-Tender, Lungs Clear, No Accessory Muscle Use, No Respiratory Distress, Normal Breath Sounds Cardiovascular: No Edema, No JVD, No Murmur, No Gallop, Normal Peripheral Pulses, Regular Rate/Rhythm Breast Exam: Deferred Gastrointestinal: Other (The largest area of concern was in her around the umbilicus region. Patient has a vertical surgical scar and states that there is pain throughout.) Genitalia: Deferred Pelvic: Deferred Rectal: Deferred Extremities: Normal capillary refill, No pedal edema Neurologic: Alert Cerebellar Function: NOT DONE Reflexes: NOT DONE Skin: Dry, Normal Color, Warm Lymphatic: No Adenopathy Was a procedure done? Was a procedure done?: No GI differential Dx Differential Diagnosis: Bowel Obstruction, Cholangitis, Cholecystitis, Constipation, Diverticular disease, Gastritis/PUD, Gastroenteritis, Inflammatory BD, Pancreatitis, UTI X-Ray, Labs, Meds, VS Vital Signs Date Time Temp Pulse Resp B/P (MAP) Pulse Ox O2 Delivery O2 Flow Rate FiO2 06/20/25 20:59 98.4 87 16 130/90 (103) 95 98.4 06/20/25 18:21 90 17 115/87 06/20/25 18:00 98.7 83 20 127/89 (102) 95 98.7 06/20/25 15:11 98.4 98 20 133/89 96 98.4 Lab Test 06/20/25 19:06 06/20/25 17:45 06/20/25 17:25 Range/Units Troponin I High Sensitivity 5 5 </=34 ng/L White Blood Count 13.7 H 4.4-10.8 10^3/uL Red Blood Count 5.35 H 4.0-5.20 10^6/uL Hemoglobin 16.2 12.2-16.2 g/dL Hematocrit 46.0 36.0-46.0 % Mean Corpuscular Volume 86.0 80.0-100.0 fL Mean Corpuscular Hemoglobin 30.2 28.0-32.0 pg Mean Corpuscular Hemoglobin Concent 35.2 32.0-36.0 g/dL Red Cell Distribution Width 13.9 11.8-14.3 % Platelet Count 413 140-450 10^3/uL Mean Platelet Volume 7.9 6.9-10.8 fL Neutrophils (%) (Auto) 65.8 37.0-80.0 % Lymphocytes (%) (Auto) 25.0 10.0-50.0 % Monocytes (%) (Auto) 7.2 0.0-12.0 % Eosinophils (%) (Auto) 1.4 0.0-7.0 % Basophils (%) (Auto) 0.6 0.0-2.0 % Neutrophils # (Auto) 9.0 H 1.6-8.6 10 ^3/uL Lymphocytes # (Auto) 3.4 0.4-5.4 10 ^3/uL Monocytes # (Auto) 1.0 0-1.3 10 ^3/uL Eosinophils # (Auto) 0.2 0-0.8 10 ^3/uL Basophils # (Auto) 0.1 0-0.2 10 ^3/uL Nucleated Red Blood Cells 0.1 % Sodium Level 142 136-145 mmol/L Potassium Level 3.0 L 3.5-5.1 mmol/L Chloride Level 104 98-107 mmol/L Carbon Dioxide Level 24 20-31 mmol/L Anion Gap 14 5-15 Blood Urea Nitrogen 10 9-23 mg/dL Creatinine 0.68 0.550-1.02 mg/dL Glomerular Filtration Rate Calc 109 >90 mL/min BUN/Creatinine Ratio 14.7 10.0-20.0 Serum Glucose 104 74-106 mg/dL Calcium Level 9.6 8.7-10.4 mg/dL Lipase 58 H 12-53 U/L Urine Color Light-yellow Yellow Urine Clarity Clear Clear Urine pH 6.0 5.0-9.0 Urine Specific [place] 1.007 1.001-1.035 Urine Protein Negative Negative Urine Ketones Negative Negative Urine Blood Negative Negative /uL Urine Nitrite Negative Negative Urine Bilirubin Negative Negative Urine Urobilinogen Normal Negative mg/dL Urine Leukocyte Esterase Negative Negative /uL Urine RBC <1 0 - 4 /hpf Urine Microscopic WBC 1 0-5 /HPF Urine Squamous Epithelial Cells None seen <5 /hpf Urine Bacteria None seen None Seen /hpf Urine Glucose Normal Normal mg/dL Current Medications Medications (Trade) Dose Ordered Sig/Silvia Route Start Time Stop Time Status Last Admin Hydromorphone HCl (Dilaudid Injection) 1 mg ONCE ONCE IV 06/20/25 17:45 06/20/25 17:46 DC 06/20/25 18:21 Ondansetron HCl (Zofran) 4 mg ONCE ONCE IV 06/20/25 17:45 06/20/25 17:46 DC 06/20/25 18:20 X-Ray, Labs, Meds, VS Comment All studies performed in the ED were evaluated by me personally. Serum studies revealed a mild leukocytosis as well as an elevated lipase and hypokalemic state. CT of the abdomen and pelvis revealed a probable SBO. Patient will be admitted for pain management as well as continued evaluation of possible developing or worsening SBO. Patient's insurance is [employer] and therefore, required a call to Dr. Schilling. I discussed the patient presentation as well as laboratory and imaging studies with her. She agreed to accept the patient as an admission. Time of 1ST Reevaluation: 20:49 Reevaluation 1ST: Improved Consultation: PCP, GI Patient Education/Counseling: Diagnosis, Treatment Family Education/Counseling: Diagnosis, Treatment SEPSIS Sepsis Screen Date sepsis recognized/suspect: Jun 20, 2025 Time Sepsis recognized/suspect: 1510 Recent Procedure: No On Antibiotic Therapy: No Respiratory Rate >20: No Heart Rate >90: Yes Temp<36 C (96.8 F) or >38.3 C: No SBP <90 or MAP <65 mmHG: No New Acute Mental Status Change: No Is the patient on CPAP, BIPAP,: No Physician Orders Troponin-I Hs (06/21/25 00:00) Troponin-I Hs (06/21/25 03:00) Ct Ab Pel With Iv Con Only (06/20/25 17:36) He[place]ock Iv (06/20/25 17:36) Electrocardigram (06/20/25 17:36) Potassium Chl 20meq/100ml (06/20/25 20:45) Vital Signs Date Time Temp Pulse Resp B/P (MAP) Pulse Ox O2 Delivery O2 Flow Rate FiO2 06/20/25 20:59 98.4 87 16 130/90 (103) 95 98.4 06/20/25 18:21 90 17 115/87 06/20/25 18:00 98.7 83 20 127/89 (102) 95 98.7 06/20/25 15:11 98.4 98 20 133/89 96 98.4 Laboratory Tests Test 06/20/25 17:45 White Blood Count 13.7 10^3/uL (4.4-10.8) H Medications Medications Dose Ordered Sig/Silvia Route Start Time Stop Time Status Last Admin Dose Admin Hydromorphone HCl 1 mg ONCE ONCE IV 06/20/25 17:45 06/20/25 17:46 DC 06/20/25 18:21 Ondansetron HCl 4 mg ONCE ONCE IV 06/20/25 17:45 06/20/25 17:46 DC 06/20/25 18:20 Departure 1 Departure Time of Disposition: 20:49 Impression: Primary Impression: Small bowel obstruction Disposition: ADMITTED INPATIENT Condition: Stable Discharged With: Self Critical Care Note Critical Care Time?: No Stability Stability form required: No Heart Score Heart Score: Heart Score Response (Comments) Value History N/A 0 EKG N/A 0 Age N/A 0 Risk Factors N/A 0 Troponin N/A 0 Total 0 HOLLY HARRISON PAC Jun 20, 2025 20:50
[2025-06-20] MEDS ORDERED: MORPHINE SULFATE INJ 2 MG/ml SYRG IV PRN (23:00)
[2025-06-20] MEDS ORDERED: NITROGLYCERIN 0.4 MG SL TAB SL PRN (23:00)
[2025-06-21] VITALS (7 sets, daily range): BP systolic 109–131; BP diastolic 71–100; PULSE 72–95; RESP 15–18; TEMP 97.8–98.7; O2SAT 93–98
[2025-06-21] MEDS: SOD CHL 0.45% 1,000 ML IV ONE (00:08)
[2025-06-21] MEDS: POTASSIUM CHL 20MEQ/100ML 100 ML IV SCH (00:12)
[2025-06-21 04:04] LABS: Alanine Aminotransferase 29 U/L (7-40); Albumin 3.6 g/dL (3.2-4.8); Alkaline Phosphatase 75 U/L (46-116); Anion Gap 13 (5-15); BUN/Creatinine Ratio 13.8 (10.0-20.0); Blood Urea Nitrogen 9 mg/dL (9-23); Carbon Dioxide 28 mmol/L (20-31); Chloride 103 mmol/L (98-107); Glucose 104 mg/dL (74-106); Sodium 144 mmol/L (136-145)
[2025-06-21 04:05] LABS: Bilirubin, Total 0.8 mg/dL (0.2-1.0); Hematocrit 38.4 % (36.0-46.0); Hemoglobin 13.5 g/dL (12.2-16.2); Mean Corpuscular Hemoglobin 30.3 pg (28.0-32.0); Mean Corpuscular Volume 86.3 fL (80.0-100.0); Nucleated Red Blood Cells % 0.1 %
[2025-06-21 04:07] LABS: Calcium 8.4 mg/dL (8.7-10.4); Potassium 3.1 mmol/L (3.5-5.1); Total Protein 5.3 g/dL (5.7-8.2)
[2025-06-21] MEDS: HYDROcodone-ACET 5/325MG TAB PO PRN (04:48)
[2025-06-21] MEDS: POTASSIUM CHL 20MEQ/100ML 100 ML IV ONE (04:56)
--- NOTE | 2025-06-21 07:57 | DVHHP2 ---
Admitting Diagnosis: SBO, recurrent History of Present Illness HPI 44 y.o. 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 Patient was admitted for further treatment. Her surgeon, Justyna was consulted. She had CT of the abdomen in the ER that showed: "Wall thickening of the stomach and proximal small bowel loops with fluid-filled mildly distended proximal small bowel measuring up to 3.1 cm. Correlate for gastroenteritis with associated ileus. Bowel obstruction can not be completely excluded. Small midline ventral upper to mid abdominal hernia containing a partial wall of the adjacent colon without evidence of obstruction or strangulation. There appears to be postsurgical changes of the right hemicolon. Hyperdense foci within the distal transverse colon which may represent foreign body/Ingested material measuring up to 8 mm." Home Meds Active Scripts Fluticasone-Salmeterol (Wixela Inhub 250-50 Mcg/Dose) 1 Aer Aer, 1 AER IN DAILY for 30 Days, #1 AER 2 Refills Prov:HOLLY CROWE MD 03/28/22 Tiotropium [place] Monohydrate (Spiriva Respimat) 2.5 Mcg/Act Spr, 2.5 MCG IN DAILY PRN for 30 Days, #1 UNIT 2 Refills Prov:HOLLY CROWE MD 03/28/22 Prednisone (Prednisone) 20 Mg Tab, 5 MG PO DAILY for 10 Days, #10 TAB Prov:HOLLY CROWE MD 03/28/22 Albuterol Sulfate (Albuterol Sulfate Hfa) 108 Mcg/Act Aer, 108 MCG IN Q4HP PRN for 10 Days, #1 AER Prov:HOLLY CROWE MD 03/28/22 Past Medical History Past Surgical History: Other (partial bowel resection) Review of Systems Gastrointestinal: Nausea, Vomiting, Abdominal Pain H&P Exam Vital Signs Vital Signs Date Time Temp Pulse Resp B/P (MAP) Pulse Ox O2 Delivery O2 Flow Rate FiO2 06/21/25 04:45 98.2 85 18 118/77 (91) 97 98.2 06/21/25 04:10 Room Air* 0 21 General Appeara: Obese Eye Exam: bilateral eye PERRL, bilateral eye EOMI Pulmonary/Respiratory: Lungs clear Cardiovascular/Chest: Tachycardia Abdominal Pain Onset Location: Generalized abdomen Neuro/Mental St: Alert, Oriented SEPSIS Sepsis Screen Date sepsis recognized/suspect: Jun 20, 2025 Time Sepsis recognized/suspect: 2332 Recent Procedure: No On Antibiotic Therapy: No Respiratory Rate >20: No Heart Rate >90: No Temp<36 C (96.8 F) or >38.3 C: No SBP <90 or MAP <65 mmHG: No New Acute Mental Status Change: No Is the patient on CPAP, BIPAP,: No Physician Orders Hydrocodone-Acet 5/325mg Tab ([place] /32 (06/21/25 04:45) * Gi Dvh Perishable Fruit Inspector (06/21/25 06:53) Vital Signs Date Time Temp Pulse Resp B/P (MAP) Pulse Ox O2 Delivery O2 Flow Rate FiO2 06/21/25 04:45 98.2 85 18 118/77 (91) 97 98.2 06/21/25 04:10 98.2 85 18 118/77 (91) 98 98.2 06/21/25 04:10 85 18 95 Room Air* 0 21 06/20/25 23:59 91 20 121/82 Laboratory Tests Test 06/21/25 03:26 White Blood Count 11.2 10^3/uL (4.4-10.8) H Medications Medications Dose Ordered Sig/Silvia Route Start Time Stop Time Status Last Admin Dose Admin Acetaminophen/ Hydrocodone Bitart 1 tab Q6HPRN PRN PO 06/21/25 04:45 06/21/25 04:48 1 TAB Hydromorphone HCl 1 mg ONCE ONCE IV 06/20/25 23:00 06/20/25 23:01 DC 06/20/25 23:59 1 MG Metronidazole 100 ml @ 100 mls/hr Q8HR IV 06/21/25 06:00 06/21/25 05:37 100 MLS/HR Potassium Chloride 100 ml @ 50 mls/hr ONCE ONCE IV 06/21/25 04:30 06/21/25 06:29 DC 06/21/25 04:56 50 MLS/HR Potassium Chloride 100 ml @ 50 mls/hr Q2H IV 06/20/25 20:45 06/21/25 00:45 DC 06/21/25 00:12 50 MLS/HR Sodium Chloride 1,000 ml @ 100 mls/hr Q10H ONCE IV 06/20/25 23:00 06/21/25 08:59 06/21/25 00:08 100 MLS/HR Labs/Xrays Labs Test 06/21/25 03:26 06/20/25 17:45 06/20/25 17:25 Range/Units White Blood Count 11.2 H 4.4-10.8 10^3/uL Red Blood Count 4.45 4.0-5.20 10^6/uL Hemoglobin 13.5 # 12.2-16.2 g/dL Hematocrit 38.4 # 36.0-46.0 % Mean Corpuscular Volume 86.3 80.0-100.0 fL Mean Corpuscular Hemoglobin 30.3 28.0-32.0 pg Mean Corpuscular Hemoglobin Concent 35.1 32.0-36.0 g/dL Red Cell Distribution Width 13.4 11.8-14.3 % Platelet Count 327 140-450 10^3/uL Mean Platelet Volume 7.9 6.9-10.8 fL Neutrophils (%) (Auto) 60.5 37.0-80.0 % Lymphocytes (%) (Auto) 29.1 10.0-50.0 % Monocytes (%) (Auto) 7.6 0.0-12.0 % Eosinophils (%) (Auto) 2.5 0.0-7.0 % Basophils (%) (Auto) 0.3 0.0-2.0 % Neutrophils # (Auto) 6.7 1.6-8.6 10 ^3/uL Lymphocytes # (Auto) 3.3 0.4-5.4 10 ^3/uL Monocytes # (Auto) 0.8 0-1.3 10 ^3/uL Eosinophils # (Auto) 0.3 0-0.8 10 ^3/uL Basophils # (Auto) 0 0-0.2 10 ^3/uL Nucleated Red Blood Cells 0.1 % Sodium Level 144 136-145 mmol/L Potassium Level 3.1 L 3.5-5.1 mmol/L Chloride Level 103 98-107 mmol/L Carbon Dioxide Level 28 20-31 mmol/L Anion Gap 13 5-15 Blood Urea Nitrogen 9 9-23 mg/dL Creatinine 0.65 0.550-1.02 mg/dL Glomerular Filtration Rate Calc 110 >90 mL/min BUN/Creatinine Ratio 13.8 10.0-20.0 Serum Glucose 104 74-106 mg/dL Calcium Level 8.4 L 8.7-10.4 mg/dL Total Bilirubin 0.8 0.2-1.0 mg/dL Aspartate Amino Transferase (AST) 15 13-40 U/L Alanine Aminotransferase (ALT) 29 7-40 U/L Alkaline Phosphatase 75 46-116 U/L Troponin I High Sensitivity 5 </=34 ng/L Total Protein 5.3 L 5.7-8.2 g/dL Albumin 3.6 3.2-4.8 g/dL Lipase 58 H 12-53 U/L Urine Color Light-yellow Yellow Urine Clarity Clear Clear Urine pH 6.0 5.0-9.0 Urine Specific [place] 1.007 1.001-1.035 Urine Protein Negative Negative Urine Ketones Negative Negative Urine Blood Negative Negative /uL Urine Nitrite Negative Negative Urine Bilirubin Negative Negative Urine Urobilinogen Normal Negative mg/dL Urine Leukocyte Esterase Negative Negative /uL Urine RBC <1 0 - 4 /hpf Urine Microscopic WBC 1 0-5 /HPF Urine Squamous Epithelial Cells None seen <5 /hpf Urine Bacteria None seen None Seen /hpf Urine Glucose Normal Normal mg/dL Assessment/Plan Problem List: (1) Small bowel obstruction Plan NPO, IVF, Abx, SBFT, Surgery consult, Plan discussed with: Patient ARTURO CAICEDO MD Jun 21, 2025 07:57
[2025-06-21] MEDS: GASTROGRAFIN 120 ML SOL ONE (08:29)
--- NOTE | 2025-06-21 09:56 | DVH ---
Procedure: XY SMALL BOWEL SERIES-W GASTROGRA Exam Date: 06/21/2025 08:50 AM Reason for study/Clinical History: SBO Comparison Study: None Technique: Single contrast small bowel series performed. Findings: Initial order picker view of the abdomen and pelvis appears demonstrates no acute process. Contrast is identified within the colon by 45 min. This represents a normal small bowel transit time . Small bowel loops are normal in size. Normal mucosal pattern. No evidence of small bowel obstructi on, stricture, or mucosal abnormality. The terminal ileum is well visualized and is unremarkable. IMPRESSION: Normal small bowel series. END IMPRESSION:
[2025-06-21] MEDS ORDERED: KETOROLAC TROMETH 30 MG/ML 1ML VIAL IV SCH (10:45)
[2025-06-21] MEDS: CIPROFLOXACIN 400MG/200ML 200 ML IV SCH (11:00)
[2025-06-21] MEDS: HYDROmorphone HCL 2 MG/ML VL/or syr IV PRN (11:01)
--- NOTE | 2025-06-21 11:49 | DVHPN2 ---
Progress Note Date Seen: Jun 21, 2025 Medical Necessity Reason Pt with a Central, PICC or Fol: No Objective vital signs Vital Sign Date Time Temp Pulse Resp B/P (MAP) Pulse Ox O2 Delivery O2 Flow Rate FiO2 06/21/25 11:01 77 15 109/77 06/21/25 09:00 97.8 93 97.8 06/21/25 04:10 Room Air* 0 21 Total Intake and Output 06/20/25 06/20/25 06/21/25 15:00 23:00 07:00 Intake Total 100 ml Balance 100 ml medications Current Medications Medications Dose Ordered Sig/Silvia Route Start Time Stop Time Status Last Admin Dose Admin Nitroglycerin 0.4 mg Q5MINP PRN SL 06/20/25 23:00 Morphine Sulfate 2 mg Q30M PRN IV 06/20/25 23:00 Ciprofloxacin 200 ml @ 200 mls/hr Q12HR IV 06/21/25 10:00 06/21/25 11:00 200 MLS/HR Metronidazole 100 ml @ 100 mls/hr Q8HR IV 06/21/25 06:00 06/21/25 05:37 100 MLS/HR Acetaminophen/ Hydrocodone Bitart 1 tab Q6HPRN PRN PO 06/21/25 04:45 06/21/25 04:48 1 TAB Hydromorphone HCl 1 mg Q2HPRN PRN IV 06/21/25 10:30 06/21/25 11:01 1 MG Ketorolac Tromethamine 15 mg Q8HR IV 06/21/25 10:45 06/26/25 10:44 Hold laboratory and microbiology Laboratory Tests 06/21/25 03:26 Test 06/21/25 03:26 Range/Units Serum Glucose 104 74-106 mg/dL Problem List/Assessment/Plan Problem List/Assessment/Plan 06/21/25 WHEN I CAME TO EXAMINE RADHAY SHE WAS DOWNSTAIRS FOR X RAYS AND I SPOKE TO HER , HE STATES I HAD OPERATED ON HER BEFORE, HER SMALL BOWEL SERIES IS REPORTED NORMAL AND I HAD EXPLAINED TO THAT IF THE X RAYS SHOWS NO OBSTRUCTION WE WILL NOT NEED TO OPERATE ON HER.i CALLED THE ROOM WITHOUT SUCCESS AND THEN CALLED PATIENT'S NURSE AND ASKED HER TO CONVEY TO PT THAT X RAY IS REPORTED NORMAL. Plan discussed with: Spouse CAROLYN GOLDSTEIN MD Jun 21, 2025 11:49
--- NOTE | 2025-06-21 13:25 | DVHINCON2 ---
GI Consult Consult Note GI consult note Date of Consultation: 06/21/2025 Chief Complaint: Gastroenteritis Referring Physician: Dr. oSlano H&P: 44-year-old female admitted with diffuse severe abdominal pain for the last few days. Patient has had similar symptoms in the past and diagnosed with bowel obstruction multiple times. Status post ventral hernia repair with right hemicolectomy 10 years ago with complications of perforation and this needed to be repeated three years ago also. Patient also complaining of diarrhea about 1- 5 episodes every day, yellowish brown-colored stool. No nausea or vomiting. Status post EGD and colonoscopy 10 years ago. Small-bowel series is negative for any bowel obstruction Past Medical History: Asthma, bowel obstruction, ventral hernia Past Surgical History: Multiple bowel resections with right hemicolectomy Social History: NO smoking, drinking ETOH and use of illegal drugs. Family History: Noncontributory Review of Systems: Constitutional: no fever, chill, weight loss HEENT: no eye pain, no hearing loss, no oral lesion, no scleral icterus Heart: no chest pain, no chest pressure Lung: no cough, no dyspnea with exertion Abdomen: see HPI Physical exam: General: NAD, AAOX3 Chest: lung gutiérrez clear to auscultation Heart: RRR, no murmur Abdomen: non-distended,+ generalized tenderness to palpation, +BS, ventral hernia noted. Healed abdominal surgical scar Labs: Labs Test 06/21/25 03:26 06/20/25 17:45 06/20/25 17:25 Range/Units White Blood Count 11.2 H 4.4-10.8 10^3/uL Red Blood Count 4.45 4.0-5.20 10^6/uL Hemoglobin 13.5 # 12.2-16.2 g/dL Hematocrit 38.4 # 36.0-46.0 % Mean Corpuscular Volume 86.3 80.0-100.0 fL Mean Corpuscular Hemoglobin 30.3 28.0-32.0 pg Mean Corpuscular Hemoglobin Concent 35.1 32.0-36.0 g/dL Red Cell Distribution Width 13.4 11.8-14.3 % Platelet Count 327 140-450 10^3/uL Mean Platelet Volume 7.9 6.9-10.8 fL Neutrophils (%) (Auto) 60.5 37.0-80.0 % Lymphocytes (%) (Auto) 29.1 10.0-50.0 % Monocytes (%) (Auto) 7.6 0.0-12.0 % Eosinophils (%) (Auto) 2.5 0.0-7.0 % Basophils (%) (Auto) 0.3 0.0-2.0 % Neutrophils # (Auto) 6.7 1.6-8.6 10 ^3/uL Lymphocytes # (Auto) 3.3 0.4-5.4 10 ^3/uL Monocytes # (Auto) 0.8 0-1.3 10 ^3/uL Eosinophils # (Auto) 0.3 0-0.8 10 ^3/uL Basophils # (Auto) 0 0-0.2 10 ^3/uL Nucleated Red Blood Cells 0.1 % Sodium Level 144 136-145 mmol/L Potassium Level 3.1 L 3.5-5.1 mmol/L Chloride Level 103 98-107 mmol/L Carbon Dioxide Level 28 20-31 mmol/L Anion Gap 13 5-15 Blood Urea Nitrogen 9 9-23 mg/dL Creatinine 0.65 0.550-1.02 mg/dL Glomerular Filtration Rate Calc 110 >90 mL/min BUN/Creatinine Ratio 13.8 10.0-20.0 Serum Glucose 104 74-106 mg/dL Calcium Level 8.4 L 8.7-10.4 mg/dL Total Bilirubin 0.8 0.2-1.0 mg/dL Aspartate Amino Transferase (AST) 15 13-40 U/L Alanine Aminotransferase (ALT) 29 7-40 U/L Alkaline Phosphatase 75 46-116 U/L Troponin I High Sensitivity 5 </=34 ng/L Total Protein 5.3 L 5.7-8.2 g/dL Albumin 3.6 3.2-4.8 g/dL Lipase 58 H 12-53 U/L Urine Color Light-yellow Yellow Urine Clarity Clear Clear Urine pH 6.0 5.0-9.0 Urine Specific [place] 1.007 1.001-1.035 Urine Protein Negative Negative Urine Ketones Negative Negative Urine Blood Negative Negative /uL Urine Nitrite Negative Negative Urine Bilirubin Negative Negative Urine Urobilinogen Normal Negative mg/dL Urine Leukocyte Esterase Negative Negative /uL Urine RBC <1 0 - 4 /hpf Urine Microscopic WBC 1 0-5 /HPF Urine Squamous Epithelial Cells None seen <5 /hpf Urine Bacteria None seen None Seen /hpf Urine Glucose Normal Normal mg/dL Imaging: CT abdomen pelvis IMPRESSION: Wall thickening of the stomach and proximal small bowel loops with fluid-filled mildly distended proximal small bowel measuring up to 3.1 cm. Correlate for gastroenteritis with associated ileus. Bowel obstruction can not be completely excluded. Small midline ventral upper to mid abdominal hernia containing a partial wall of the adjacent colon without evidence of obstruction or strangulation. There appears to be postsurgical changes of the right hemicolon. Hyperdense foci within the distal transverse colon which may represent foreign body/Ingested ma terial measuring up to 8 mm. Small-bowel x-ray IMPRESSION: Normal small bowel series. Assessment: Abdominal pain Gastroenteritis Diarrhea Ventral hernia History of small-bowel obstruction Plan: Discussed with Dr. Romero Stool for WBC, bacterial culture, C diff IV antibiotics Clear liquid diet Outpatient GI follow-up for elective GI procedures as needed Plan discussed with patient, spouse at bedside and RN Thank you for this consult Date of Service: Jun 21, 2025 Billing Provider: HUGO MEDELLIN Common Visit Codes: CONSULT ONLY Consultation Codes: [id number] CONSULT <60MIN HUGO MEDELLIN Jun 21, 2025 13:25
[2025-06-21] MEDS: KETOROLAC TROMETH 30 MG/ML 1ML VIAL IV SCH (17:00)
[2025-06-22] VITALS (7 sets, daily range): BP systolic 102–129; BP diastolic 63–90; PULSE 68–93; RESP 14–20; TEMP 97.8–98.5; O2SAT 95–99
[2025-06-22] MEDS ORDERED: HYDROmorphone HCL 2 MG/ML VL/or syr IV PRN ×2 (08:30)
--- NOTE | 2025-06-22 13:35 | DVHDS2 ---
Discharge Summary Date of Admission Jun 20, 2025 at 22:57 Date of Discharge: Jun 22, 2025 Labs/Diagnostic Data: Laboratory Results Test 06/21/25 13:04 06/21/25 03:26 06/20/25 17:45 06/20/25 17:25 Stool for White Cells None seen White Blood Count 11.2 10^3/uL (4.4-10.8) Red Blood Count 4.45 10^6/uL (4.0-5.20) Hemoglobin 13.5 g/dL (12.2-16.2) Hematocrit 38.4 % (36.0-46.0) Mean Corpuscular Volume 86.3 fL (80.0-100.0) Mean Corpuscular Hemoglobin 30.3 pg (28.0-32.0) Mean Corpuscular Hemoglobin Concent 35.1 g/dL (32.0-36.0) Red Cell Distribution Width 13.4 % (11.8-14.3) Platelet Count 327 10^3/uL (140-450) Mean Platelet Volume 7.9 fL (6.9-10.8) Neutrophils (%) (Auto) 60.5 % (37.0-80.0) Lymphocytes (%) (Auto) 29.1 % (10.0-50.0) Monocytes (%) (Auto) 7.6 % (0.0-12.0) Eosinophils (%) (Auto) 2.5 % (0.0-7.0) Basophils (%) (Auto) 0.3 % (0.0-2.0) Neutrophils # (Auto) 6.7 10 ^3/uL (1.6-8.6) Lymphocytes # (Auto) 3.3 10 ^3/uL (0.4-5.4) Monocytes # (Auto) 0.8 10 ^3/uL (0-1.3) Eosinophils # (Auto) 0.3 10 ^3/uL (0-0.8) Basophils # (Auto) 0 10 ^3/uL (0-0.2) Nucleated Red Blood Cells 0.1 % Sodium Level 144 mmol/L (136-145) Potassium Level 3.1 mmol/L (3.5-5.1) Chloride Level 103 mmol/L (98-107) Carbon Dioxide Level 28 mmol/L (20-31) Anion Gap 13 (5-15) Blood Urea Nitrogen 9 mg/dL (9-23) Creatinine 0.65 mg/dL (0.550-1.02) Glomerular Filtration Rate Calc 110 mL/min (>90) BUN/Creatinine Ratio 13.8 (10.0-20.0) Serum Glucose 104 mg/dL (74-106) Calcium Level 8.4 mg/dL (8.7-10.4) Total Bilirubin 0.8 mg/dL (0.2-1.0) Aspartate Amino Transferase (AST) 15 U/L (13-40) Alanine Aminotransferase (ALT) 29 U/L (7-40) Alkaline Phosphatase 75 U/L (46-116) Troponin I High Sensitivity 5 ng/L (</=34) Total Protein 5.3 g/dL (5.7-8.2) Albumin 3.6 g/dL (3.2-4.8) Lipase 58 U/L (12-53) Urine Color Light-yellow (Yellow) Urine Clarity Clear (Clear) Urine pH 6.0 (5.0-9.0) Urine Specific [place] 1.007 (1.001-1.035) Urine Protein Negative (Negative) Urine Ketones Negative (Negative) Urine Blood Negative /uL (Negative) Urine Nitrite Negative (Negative) Urine Bilirubin Negative (Negative) Urine Urobilinogen Normal mg/dL (Negative) Urine Leukocyte Esterase Negative /uL (Negative) Urine RBC <1 /hpf (0 - 4) Urine Microscopic WBC 1 /HPF (0-5) Urine Squamous Epithelial Cells None seen /hpf (<5) Urine Bacteria None seen /hpf (None Seen) Urine Glucose Normal mg/dL (Normal) Other Laboratory Tests 06/21/25 03:26 Brief Hx & Hospital Course: Patient is a 44-year-old female with past medical history of hernia, partial bowel resection, history of recurrent SBO's who presented with complaints of abdominal pain and nausea for the past week. CT imaging showed wall thickening of the stomach and proximal small bowel loops with fluid-filled mild distended proximal small bowel measuring up to 3.1 centimeters. General surgery was consulted for SBO. Patient had a small bowel follow-through series done which was normal. Patient subsequently had several bowel movements. Her diet was advanced from liquid to mechanical soft that she tolerated. Patient had some leukocytosis noted on her CBC which downtrended from 13.7-11.2. This appears to be reactive. No fevers are noted. Presentation not consistent with sepsis. BMP was notable for some hypokalemia which was repleted. Patient is to follow-up with general surgery outpatient. Patient discharged in stable condition. Patient cleared by general surgery for discharge. Condition at Discharge: Good Final Diagnosis/Problems List SBO Secondary Diagnosis: History of Hernia Discharge Disposition: Home Discharge Instruct/Medications Diet: Regular Activity: No Restrictions, As Tolerated Follow Up/Referral: Follow up with general surgery. Medications: No new medications. Scheduled Fluticasone-Salmeterol (Wixela Inhub 250-50 Mcg/Dose), 1 AER IN DAILY Prednisone (Prednisone), 5 MG PO DAILY Scheduled PRN Albuterol Sulfate (Albuterol Sulfate Hfa), 108 MCG IN Q4HP PRN Tiotropium [place] Monohydrate (Spiriva Respimat), 2.5 MCG IN DAILY PRN Discharge Statement: "Patient was advised to return to the ER or call 911 if any headaches, dizziness, shortness of breath, chest pain, abdominal pain, bleeding, fevers, or worsening of medical condition. Patient was counseled about treatment plan, medications, possible side effects, patientverbalized understanding. All questions were answered to the best of my ability. This discharge took greater then 30 minutes in planning, reviewing documentation, counseling the patient, and discussing with other team members." ASSESSMENT ASSESSMENT Assessment SBO KENIA HERNANDEZ DO Jun 22, 2025 13:35
[2025-06-22] MEDS: POTASSIUM EFFERVESENT TAB 25 MEQ PO ONE (13:48)
--- NOTE | 2025-06-22 13:59 | DVHPN2 ---
Subjective Patient admits to feeling better Bowel movements x2 today Would like her diet to be advanced Status post colonoscopy three years ago Changes from previous H/P or p: No Changes Objective Vitals Vital Signs Date Time Temp Pulse Resp B/P (MAP) Pulse Ox O2 Delivery O2 Flow Rate FiO2 06/22/25 08:20 97.8 68 16 103/72 (82) 95 97.8 06/21/25 20:00 Room Air* 0 21 Intake/Output Intake and Output 06/22/25 07:00 Intake Total 2500 ml Output Total 3 ml Balance 2497 ml Intake Oral 1700 ml IV Total 800 ml Output Stool Total 3 ml # Voids 6 Exam General: NAD, AAOX3 Chest: lung gutiérrez clear to auscultation Heart: RRR, no murmur Abdomen: non-distended,+ mild tenderness to palpation, +BS, ventral hernia noted. Healed abdominal surgical scar Medications Current Medications Medications Dose Ordered Sig/Silvia Route Start Time Stop Time Status Last Admin Dose Admin Nitroglycerin 0.4 mg Q5MINP PRN SL 06/20/25 23:00 Morphine Sulfate 2 mg Q30M PRN IV 06/20/25 23:00 Ciprofloxacin 200 ml @ 200 mls/hr Q12HR IV 06/21/25 10:00 06/22/25 09:39 200 MLS/HR Metronidazole 100 ml @ 100 mls/hr Q8HR IV 06/21/25 06:00 06/22/25 05:39 100 MLS/HR Acetaminophen/ Hydrocodone Bitart 1 tab Q6HPRN PRN PO 06/21/25 04:45 06/22/25 13:47 1 TAB Hydromorphone HCl 0.5 mg Q4HPRN PRN IV 06/22/25 08:30 Laboratory Results Laboratory Tests 06/21/25 03:26 Urinalysis Test 06/20/25 17:25 Urine Color Light-yellow (Yellow) Urine Clarity Clear (Clear) Urine pH 6.0 (5.0-9.0) Urine Specific [place] 1.007 (1.001-1.035) Urine Protein Negative (Negative) Urine Ketones Negative (Negative) Urine Blood Negative /uL (Negative) Urine Nitrite Negative (Negative) Urine Bilirubin Negative (Negative) Urine Urobilinogen Normal mg/dL (Negative) Urine Leukocyte Esterase Negative /uL (Negative) Urine RBC <1 /hpf (0 - 4) Urine Microscopic WBC 1 /HPF (0-5) Urine Squamous Epithelial Cells None seen /hpf (<5) Urine Bacteria None seen /hpf (None Seen) Urine Glucose Normal mg/dL (Normal) Microbiology Microbiology Date/Time Source Procedure Growth Status 06/21/25 13:04 Stool Clostridium difficile Toxin Assay - Final Complete Assessment/Plan Assessment/Plan Abdominal pain improving Gastroenteritis Diarrhea Ventral hernia small-bowel obstruction improved Plan Discussed with Dr. Romero Outpatient GI follow-up recommended Plan discussed with: Patient, Spouse, Other (RN) Date of Service: Jun 22, 2025 Billing Provider: HUGO MEDELLIN Common Visit Codes: [id number] INP/OBS CARE(HIGH) HUGO MEDELLIN Jun 22, 2025 13:59
== END 2025-06-22 16:25 | disposition home or self-care (01) | DRG 390 ==
LOC: ER 15:08 → OVERFLOW 22:57 → WEST WING 06-21 04:06
PROVIDERS: ADMIT Internal Medicine; ATTEND Internal Medicine
DX: K56.609 Unspecified intestinal obstruction, unspecified as to partial versus complete obstruction (principal); J45.909 Unspecified asthma, uncomplicated; E87.6 Hypokalemia
CPT/HCPCS: 36415; 74177; 74250; 80048; 80053; 81001; 83690; 84484; 85025; 85048; 87045; 87427; 87493; 96374; G0378; J1885; J2405; J3480; J3490

== ENCOUNTER 2025-07-06 13:42 | Inpatient (IN) | payer OTHER ==
[~2025-07-06] VITALS: Ht 157.5 cm; Wt 73.0 kg
[~2025-07-06 13:42] MED LIST changes: -FLUT1AER6 IN; -PRED20TA2 PO
--- NOTE | 2025-07-06 14:03 | ED.PDOC ---
History of Present Illness HPI Comments Ms. Fabian is a 44-year-old female with prior medical history of multiple small-bowel obstructions and surgeries, and asthma, who presents today with chief complaint of abdominal pain. She states that for the last 3 days she has had intermittent stabbing/shocking pain in epigastrium, 10/10 intensity, worse within 30-40 minutes of eating, with minor relief after a bowel movement. Additionally refers multiple daily episodes of watery diarrhea in the last 30 days. She denies nausea, vomiting, bloody diarrhea, bloody vomitus, and palpitations. She was discharged on 06/22/2025 after presenting with a SBO. Due to persistence of symptoms she presented to the emergency department for seema luation. Patient refers that home the only pain medication she takes is tylenol. Chief Complaint: Abdominal Pain Time Seen by MD: 13:44 Primary Care Provider: Niecy Allergies: Coded Allergies: NO KNOWN ALLERGIES (Unverified , 06/19/21) Home Meds Active Scripts Tiotropium [place] Monohydrate (Spiriva Respimat) 2.5 Mcg/Act Spr, 2.5 MCG IN DAILY PRN for 30 Days, #1 UNIT 2 Refills Prov:HOLLY CROWE MD 03/28/22 Albuterol Sulfate (Albuterol Sulfate Hfa) 108 Mcg/Act Aer, 108 MCG IN Q4HP PRN for 10 Days, #1 AER Prov:HOLLY CROWE MD 03/28/22 Information Source: Patient Mode of Arrival: Ambulatory Severity: Moderate Timing: Days Duration: Since onset Past Medical History PAST MEDICAL HISTORY: Asthma Past Medical History (Other): Recurrent SBOs, herniated discs Surgical History (Other): Partial bowel resection, back surgery for herniated disc LUNCHROOM MONITOR History: Denies all LUNCHROOM MONITOR Hx Family History Family History: Reviewed,noncontributory to illness Social History Smoker: Quit Greater Than 1 Year (States she smoked 1 pack a day for 10 years stopped approximately 6 years ago) Alcohol: Denies ETOH Use Drugs: Marijuana (States she has smoked 1 joint a day for the last 15 years) Lives In: Home Constitutional: denies: chills, diaphoresis, fatigue, fever, malaise, sweats, weakness, others EENTM: reports: mouth pain, nasal discharge, nose bleeding, throat pain, throat swelling Respiratory: denies: cough, SOB at rest, SOB with excertion Cardiovascular: denies: chest pain, dizzy spells, diaphoresis, edema, lighth eadedness, palpitations, syncope Gastrointestinal: reports: abdominal pain, diarrhea Genitourinary: denies: burning, dyspareunia, dysuria, flank pain, frequency, hematuria, incontinence, pain, vagina discharge, urgency Neurological: denies: dizziness, fainting, headache, numbness, paresthesia, se izure, tingling, tremors, weakness Musculoskeletal: denies: back pain, joint pain, joint swelling, muscle pain, neck pain Integumetry: denies: bruises, change in color, change in hair/nails, dryness, laceration, lesions, lumps, rash, wounds, others Physical Exam General Appearance: Moderate Distress HEENT: Normal ENT Inspection, PERRL/EOMI, Pharynx Normal Neck: Full Range of Motion, Non-Tender, Normal Inspection Respiratory: Chest Non-Tender, Lungs Clear, No Accessory Muscle Use, No Respiratory Distress, Normal Breath Sounds Cardiovascular: No Edema, No Murmur, Normal Peripheral Pulses, Regular Rate/Rhythm Breast Exam: Deferred Gastrointestinal: Other ( Abdomen nondistended, normal bowel sounds, soft, there is pain on superficial palpation and percussion, palpable hernia in above the umbilicus no able to fully evaluate due to pain ) Genitalia: Deferred Pelvic: Deferred Rectal: Deferred Extremities: Normal capillary refill, Normal inspection, Normal range of motion, No pedal edema Neurologic: Normal Affect, Normal Mood, Other (Oriented in person, place, time, follows commands) Cerebellar Function: NOT DONE Reflexes: NOT DONE Skin: Normal Color Lymphatic: No Adenopathy Was a procedure done? Was a procedure done?: No Differential Dx Considerations may include: Small bowel obstruction, incarcerated hernia, strangulated hernia, intractable abdominal pain, acute gastroenteritis, colitis X-Ray, Labs, Meds, VS Vital Signs Date Time Temp Pulse Resp B/P (MAP) Pulse Ox O2 Delivery O2 Flow Rate FiO2 07/06/25 19:01 86 18 125/89 (101) 97 07/06/25 16:30 92 18 126/89 (101) 97 07/06/25 16:30 97 Room Air* 0 21 07/06/25 14:27 127 19 97 Room Air* 0 21 07/06/25 14:26 122 19 127/100 07/06/25 14:26 122 19 127/100 (109) 97 07/06/25 13:44 98.1 125 18 140/94 98 98.1 Lab Test 07/06/25 17:29 07/06/25 14:33 07/06/25 14:22 Range/Units Lactic Acid Level 0.8 0.4-2.0 mmol/L White Blood Count 8.9 4.4-10.8 10^3/uL Red Blood Count 4.94 4.0-5.20 10^6/uL Hemoglobin 15.2 12.2-16.2 g/dL Hematocrit 43.8 36.0-46.0 % Mean Corpuscular Volume 88.7 80.0-100.0 fL Mean Corpuscular Hemoglobin 30.9 28.0-32.0 pg Mean Corpuscular Hemoglobin Concent 34.8 32.0-36.0 g/dL Red Cell Distribution Width 15.3 H 11.8-14.3 % Platelet Count 476 H 140-450 10^3/uL Mean Platelet Volume 7.1 6.9-10.8 fL Neutrophils (%) (Auto) 63.1 37.0-80.0 % Lymphocytes (%) (Auto) 27.7 10.0-50.0 % Monocytes (%) (Auto) 6.6 0.0-12.0 % Eosinophils (%) (Auto) 2.0 0.0-7.0 % Basophils (%) (Auto) 0.6 0.0-2.0 % Neutrophils # (Auto) 5.6 1.6-8.6 10 ^3/uL Lymphocytes # (Auto) 2.5 0.4-5.4 10 ^3/uL Monocytes # (Auto) 0.6 0-1.3 10 ^3/uL Eosinophils # (Auto) 0.2 0-0.8 10 ^3/uL Basophils # (Auto) 0.1 0-0.2 10 ^3/uL Nucleated Red Blood Cells 0.3 % Sodium Level 143 136-145 mmol/L Potassium Level 3.4 L 3.5-5.1 mmol/L Chloride Level 108 H 98-107 mmol/L Carbon Dioxide Level 23 20-31 mmol/L Anion Gap 12 5-15 Blood Urea Nitrogen 7 L 9-23 mg/dL Creatinine 0.73 0.550-1.02 mg/dL Glomerular Filtration Rate Calc 103 >90 mL/min BUN/Creatinine Ratio 9.6 L 10.0-20.0 Serum Glucose 122 H 74-106 mg/dL Calcium Level 9.0 8.7-10.4 mg/dL Total Bilirubin 0.6 0.2-1.0 mg/dL Aspartate Amino Transferase (AST) 24 13-40 U/L Alanine Aminotransferase (ALT) 28 7-40 U/L Alkaline Phosphatase 76 46-116 U/L Total Protein 6.5 5.7-8.2 g/dL Albumin 4.3 3.2-4.8 g/dL Lipase 38 12-53 U/L Urine Color Yellow Yellow Urine Clarity Clear Clear Urine pH 6.0 5.0-9.0 Urine Specific [place] 1.023 1.001-1.035 Urine Protein Trace H Negative Urine Ketones Negative Negative Urine Blood 2+ H Negative /uL Urine Nitrite Negative Negative Urine Bilirubin Negative Negative Urine Urobilinogen Normal Negative mg/dL Urine Leukocyte Esterase Negative Negative /uL Urine RBC 1 0 - 4 /hpf Urine Microscopic WBC 1 0-5 /HPF Urine Squamous Epithelial Cells Few <5 /hpf Urine Bacteria None seen None Seen /hpf Urine Mucus Few None Seen Urine Glucose Normal Normal mg/dL Urine Test Negative Negative Urine Opiates Screen Neg NEGATIVE Urine Fentanyl Screen Pos NEGATIVE Urine Barbiturates Screen Neg NEGATIVE Urine Phencyclidine Screen Neg NEGATIVE Urine Amphetamines Screen Neg NEGATIVE Urine Benzodiazepines Screen Neg NEGATIVE Urine Cocaine Screen Neg NEGATIVE Urine Cannabinoids Screen Pos NEGATIVE Current Medications Medications (Trade) Dose Ordered Sig/Silvia Route Start Time Stop Time Status Last Admin Sodium Chloride 1,000 ml @ 1,000 mls/hr Q1H ONCE IV 07/06/25 14:15 07/06/25 15:14 DC 07/06/25 14:22 Hydromorphone HCl (Dilaudid Injection) 0.25 mg ONCE ONCE IV 07/06/25 14:15 07/06/25 14:16 DC 07/06/25 14:26 Potassium Chloride 40 meq/ Potassium Chloride 4 ml/ Sodium Chloride 274 ml @ 68.5 mls/hr ONCE ONCE IV 07/06/25 15:45 07/06/25 19:44 07/06/25 18:30 Ketorolac Tromethamine (Toradol Injection) 30 mg ONCE ONCE IV 07/06/25 18:15 07/06/25 18:27 DC 07/06/25 18:30 Time of 1ST Reevaluation: 15:30 Reevaluation 1ST: Unchanged Patient Education/Counseling: Diagnosis, Treatment Family Education/Counseling: No Family Present SEPSIS Sepsis Screen Date sepsis recognized/suspect: Jul 06, 2025 Time Sepsis recognized/suspect: 6 Recent Procedure: No On Antibiotic Therapy: No Respiratory Rate >20: No Heart Rate >90: Yes Temp<36 C (96.8 F) or >38.3 C: No SBP <90 or MAP <65 mmHG: No New Acute Mental Status Change: No Is the patient on CPAP, BIPAP,: No Physician Orders Ct Ab Pel With Iv Con Only (07/06/25 14:03) Potassium Chloride (Potassium Chloride). (07/06/25 15:45) Stool Wbc (07/06/25 16:38) Stool Bacterial Culture (07/06/25 16:38) Ova & Parasite Exam (07/06/25 16:38) Clostridium Difficile Toxin (07/06/25 16:38) Vital Signs Date Time Temp Pulse Resp B/P (MAP) Pulse Ox O2 Delivery O2 Flow Rate FiO2 07/06/25 19:01 86 18 125/89 (101) 97 07/06/25 16:30 92 18 126/89 (101) 97 07/06/25 16:30 97 Room Air* 0 21 07/06/25 14:27 127 19 97 Room Air* 0 21 07/06/25 14:26 122 19 127/100 07/06/25 14:26 122 19 127/100 (109) 97 07/06/25 13:44 98.1 125 18 140/94 98 98.1 Laboratory Tests Test 07/06/25 14:33 07/06/25 17:29 White Blood Count 8.9 10^3/uL (4.4-10.8) Lactic Acid Level 0.8 mmol/L (0.4-2.0) Medications Medications Dose Ordered Sig/Silvia Route Start Time Stop Time Status Last Admin Dose Admin Hydromorphone HCl 0.25 mg ONCE ONCE IV 07/06/25 14:15 07/06/25 14:16 DC 07/06/25 14:26 Ketorolac Tromethamine 30 mg ONCE ONCE IV 07/06/25 18:15 07/06/25 18:27 DC 07/06/25 18:30 Potassium Chloride 40 meq/ Potassium Chloride 4 ml/ Sodium Chloride 274 ml @ 68.5 mls/hr ONCE ONCE IV 07/06/25 15:45 07/06/25 19:44 07/06/25 18:30 Sodium Chloride 1,000 ml @ 1,000 mls/hr Q1H ONCE IV 07/06/25 14:15 07/06/25 15:14 DC 07/06/25 14:22 Departure 1 Departure Time of Disposition: 19:20 (Patient came with abdominal pain concerning for SBO, incarcerated hernia, strangulated hernia, acute gastroenteritis, colitis. 1. I ordered and reviewed at least 3 labs including a CBC, CMP, and lactic acid. I ordered the following: Abdominal/pelvic with contrast which shows: No acute CT abnormality in the abdomen or, right hemicolectomy, small midline mid upper abdominal ventral containing short segment of nonobstructing transfers colon, small hiatal. On review of the data, the patient is unlikely to have an incarcerated hernia,, acute gastroenteritis, or colits. She is stable at this time. She will be admitted for further workup and management.) Impression: Primary Impression: Intractable abdominal pain Disposition: 30 STILL A PATIENT Admit to: Med Surg Condition: Stable Additional Instructions: The patient came for intractable abdominal pain CBC is within normal range showing mild thrombocytosis, CMP shows mild hypokalemia which was repleted UDS positive for cannabis and fentanyl Abdominal CT shows no acute CT abnormality in the abdomen or pelvis, right hemicolectomy, small midline mid upper abdominal ventral hernia containing short segment of nonobstructed transfer:, small hiatal hernia The patient will be admitted for further workup and management Critical Care Note Critical Care Time?: No Stability Stability form required: SANDIP Ruvalcaba RESIDENT Jul 06, 2025 14:03
[2025-07-06] MEDS: SODIUM CHLORIDE 0.9% 1,000 ML IV ONE (14:22)
[2025-07-06] MEDS: HYDROMORPHONE HCL 1 MG/ML INJ IV ONE (14:26)
[2025-07-06 14:27] VITALS: PULSE 127; RESP 19; O2SAT 97
[2025-07-06 14:31] LABS: Urine Protein, UAD TRACE (Negative)
[2025-07-06 14:47] LABS: Hematocrit 43.8 % (36.0-46.0); Hemoglobin 15.2 g/dL (12.2-16.2); Mean Corpuscular Hemoglobin 30.9 pg (28.0-32.0); Mean Corpuscular Volume 88.7 fL (80.0-100.0); Nucleated Red Blood Cells % 0.3 %
[2025-07-06 14:52] LABS: Amphetamine Screen, Urine Neg (NEGATIVE); Cannabinoid Screen, Urine Pos (NEGATIVE)
[2025-07-06 14:54] LABS: Barbiturate Scree,Urine Neg (NEGATIVE); Benzodiazephine Screen, Urine Neg (NEGATIVE); Cocaine Screen, Urine Neg (NEGATIVE); Opiate Scree,Urine Neg (NEGATIVE); Phencyclidine Screen, Urine Neg (NEGATIVE)
[2025-07-06 15:05] LABS: Alanine Aminotransferase 28 U/L (7-40); Albumin 4.3 g/dL (3.2-4.8); Alkaline Phosphatase 76 U/L (46-116); Anion Gap 12 (5-15); BUN/Creatinine Ratio 9.6 (10.0-20.0); Calcium 9.0 mg/dL (8.7-10.4); Carbon Dioxide 23 mmol/L (20-31); Sodium 143 mmol/L (136-145); Total Protein 6.5 g/dL (5.7-8.2)
[2025-07-06 15:06] LABS: Bilirubin, Total 0.6 mg/dL (0.2-1.0); Blood Urea Nitrogen 7 mg/dL (9-23); Chloride 108 mmol/L (98-107); Glucose 122 mg/dL (74-106); Potassium 3.4 mmol/L (3.5-5.1)
[2025-07-06] MEDS: IOHEXOL 300 MG/ML 100ML BOTTLE IJ ONE (15:24)
--- NOTE | 2025-07-06 16:03 | DVH ---
CLINICAL HISTORY: possible bowel obs TECHNIQUE: CT of the abdomen and pelvis was performed with IV contrast. This exam was performed accor ding to our departmental dose optimization program. Up-to-date CT equipment and radiation dose reduct ion techniques are utilized as appropriate. CTDI 13.3 DLP 623 COMPARISON: CT CT AB PEL WITH IV CON ONLY on DOS: 06/20/25, CT CT ABD PELVIS W CON-ORAL IV on DOS: 1 09/22/22, CT ABD/PEL on DOS: 07/18/23 FINDINGS: Abdomen/Pelvis: The spleen, pancreas, adrenal glands, gallbladder, liver, left kidney, bladder, and uterus are unrema rkable. A subcentimeter hypodense lesion within the right kidney is incompletely characterized due to lack of IV contrast. The abdominal aorta is normal in course and caliber. There are no significant atherosclerotic calcifi cations. There is no free intraperitoneal air or fluid. There is no enlarged abdominal or pelvic lymph node. There has been right hemicolectomy. There is small midline ventral mid to upper abdominal hernia cont aining a loop of nonobstructed mid transverse colon. Other: The imaged lower thorax demonstrates small hiatal hernia. No acute osseous abnormality is evident. There is a 11 mm grade 2 L5-S1 spondylolysis with severe mart earing left neural foraminal narrowing. IMPRESSION: No acute CT abnormality in the abdomen or pelvis. Right hemicolectomy. Small midline mid upper abdominal ventral hernia containing short segment of nonobstructed transverse colon. Small hiatal hernia.
[2025-07-06 16:30] VITALS: O2SAT 97
[2025-07-06] MEDS: POTASSIUM CHLORIDE 40 MEQ, LIDOCAINE 1% (LOCAL ANESTH.) 4 ML in SODIUM CHL 0.9% 250 ML IV ONE (18:30)
[2025-07-06] MEDS: KETOROLAC TROMETH 30 MG/ML 1ML VIAL IV ONE (18:30)
[2025-07-06 19:30] VITALS: O2SAT 98
[2025-07-06] MEDS ORDERED: MORPHINE SULFATE INJ 2 MG/ml SYRG IV PRN (21:00)
[2025-07-06] MEDS ORDERED: ACETAMINOPHEN 325 MG TAB PO PRN (21:00)
[2025-07-06] MEDS ORDERED: NITROGLYCERIN 0.4 MG SL TAB SL PRN (21:00)
[2025-07-06] MEDS ORDERED: ONDANSETRON HCL 4 MG/2 ML VIAL IV PRN (21:00)
[2025-07-06] MEDS ORDERED: TEMAZEPAM 15 MG CAP PO PRN (21:00)
[2025-07-06] MEDS: HYDROmorphone HCL 2 MG/ML VL/or syr IV PRN (21:38)
[2025-07-06] MEDS: SODIUM CHLOR 0.9% PF (SALINE LOCK) 10ML VIAL/SYR IV SCH (22:04)
[2025-07-06 23:20] VITALS: PULSE 127; RESP 19; O2SAT 97
[2025-07-07] VITALS (8 sets, daily range): BP systolic 126–131; BP diastolic 84–104; PULSE 66–92; RESP 12–20; TEMP 97.5–98.7; O2SAT 96–99
[2025-07-07] MEDS: HYDROcodone-ACET 5/325MG TAB PO PRN (02:48)
--- NOTE | 2025-07-07 11:33 | DVH ---
Procedure: XY SMALL BOWEL SERIES-W GASTROGRA Exam Date: 07/07/2025 09:52 AM Reason for study/Clinical History: Abdominal pain after abdominal surgery Comparison Study: XY SMALL BOWEL SERIES-W GASTROGRA on DOS: 06/21/25, XY KUB ABDOMEN SINGLE VIEW on DO S: 07/24/23, CT CT ABD PELVIS W CON-ORAL IV on DOS: 07/23/23, CT ABD/PEL on DOS: 07/18/23 Technique: Single contrast small bowel series performed. Findings: Initial farm equipment mechanic view of the abdomen and pelvis appears demonstrates no acute process. Contrast is identified within the colon by 30 min. This represents a normal small bowel transit time . Small bowel loops are normal in size. Normal mucosal pattern. No evidence of small bowel obstructi on, stricture, or mucosal abnormality. The terminal ileum is well visualized and is unremarkable. IMPRESSION: Normal small bowel series. END IMPRESSION:
[2025-07-07] MEDS: SODIUM CHLORIDE 0.9% 1,000 ML IV SCH (12:15)
--- NOTE | 2025-07-07 13:37 | DVHINCON2 ---
Date of service: Jul 07, 2025 Reason for Consultation abdominal pain History of Present Illness HPI 44 year old female presented to the ER with complaint of abdominal pain which is sharp and stabbing 10./10 with diarhea for the past 30 days. Abdomen visible hernia which is very tender to palpation. Home Meds Active Scripts Tiotropium [place] Monohydrate (Spiriva Respimat) 2.5 Mcg/Act Spr, 2.5 MCG IN DAILY PRN for 30 Days, #1 UNIT 2 Refills Prov:HOLLY CROWE MD 03/28/22 Albuterol Sulfate (Albuterol Sulfate Hfa) 108 Mcg/Act Aer, 108 MCG IN Q4HP PRN for 10 Days, #1 AER Prov:HOLLY CROWE MD 03/28/22 Past Medical History Cardiac: No pertinent Hx Pulmonary: No pertinent Hx Central Nervous System: No pertinent Hx GI: No pertinent Hx Hemotology/Oncology: No pertinent Hx Hepatobiliary: No pertinent Hx Psychiatric: No pertinent Hx Musculoskeletal: Chronic low back pain Rheumotologic: No pertinent Hx Infectious Disease: No peritnent Hx ENT: No pertinent Hx Renal/: No pertinent Hx Endocrine: No pertinent Hx Dermatology: No pertinent Hx Others herniated disc Past Surgical History: Laparotomy Patient Family History: Diabetes mellitus G8 MOTHER Ischemic heart disease G8 MOTHER Smoker: No Hx (Negative) Alocohol: None Drugs: None Lives with: With family Review of Systems Constitutional: No symptom reported Ears, Nose, & Throat: No symptom reported Eyes: No symptom reported Pulmonary/Respiratory: No symptom reported Cardiovascular: No symptom reported Gastrointestinal: Abdominal Pain Genitourinary: No symptom reported Musculoskeletal: No symptom reported Skin: No symptom reported Psychiatric: No symptom reported Endocrine: No symptom reported Hemotologic/Lymphatic: No symptom reported H&P Exam Vital Signs Vital Signs Date Time Temp Pulse Resp B/P (MAP) Pulse Ox O2 Delivery O2 Flow Rate FiO2 07/07/25 13:03 80 18 129/85 07/07/25 09:00 98.2 97 98.2 07/07/25 01:44 Room Air* 0 21 General Appeara: Well developed, Well nourished Head Exam: Normal inspection Neck Exam: Normal inspection Eye Exam: bilateral eye Normal inspection Nasal Exam: Normal inspection Pulmonary/Respiratory: Normal inspection Cardiovascular/Chest: Normal inspection Abdominal Exam: Normal bowel sounds Abdominal Pain Onset Location: Generalized abdomen Labs/Xrays Labs Test 07/07/25 08:50 07/06/25 17:29 07/06/25 14:33 07/06/25 14:22 Range/Units Beta HCG, Quantitative 0.1 L 1.5-4.2 mIU/mL Lactic Acid Level 0.8 0.4-2.0 mmol/L White Blood Count 8.9 4.4-10.8 10^3/uL Red Blood Count 4.94 4.0-5.20 10^6/uL Hemoglobin 15.2 12.2-16.2 g/dL Hematocrit 43.8 36.0-46.0 % Mean Corpuscular Volume 88.7 80.0-100.0 fL Mean Corpuscular Hemoglobin 30.9 28.0-32.0 pg Mean Corpuscular Hemoglobin Concent 34.8 32.0-36.0 g/dL Red Cell Distribution Width 15.3 H 11.8-14.3 % Platelet Count 476 H 140-450 10^3/uL Mean Platelet Volume 7.1 6.9-10.8 fL Neutrophils (%) (Auto) 63.1 37.0-80.0 % Lymphocytes (%) (Auto) 27.7 10.0-50.0 % Monocytes (%) (Auto) 6.6 0.0-12.0 % Eosinophils (%) (Auto) 2.0 0.0-7.0 % Basophils (%) (Auto) 0.6 0.0-2.0 % Neutrophils # (Auto) 5.6 1.6-8.6 10 ^3/uL Lymphocytes # (Auto) 2.5 0.4-5.4 10 ^3/uL Monocytes # (Auto) 0.6 0-1.3 10 ^3/uL Eosinophils # (Auto) 0.2 0-0.8 10 ^3/uL Basophils # (Auto) 0.1 0-0.2 10 ^3/uL Nucleated Red Blood Cells 0.3 % Sodium Level 143 136-145 mmol/L Potassium Level 3.4 L 3.5-5.1 mmol/L Chloride Level 108 H 98-107 mmol/L Carbon Dioxide Level 23 20-31 mmol/L Anion Gap 12 5-15 Blood Urea Nitrogen 7 L 9-23 mg/dL Creatinine 0.73 0.550-1.02 mg/dL Glomerular Filtration Rate Calc 103 >90 mL/min BUN/Creatinine Ratio 9.6 L 10.0-20.0 Serum Glucose 122 H 74-106 mg/dL Calcium Level 9.0 8.7-10.4 mg/dL Total Bilirubin 0.6 0.2-1.0 mg/dL Aspartate Amino Transferase (AST) 24 13-40 U/L Alanine Aminotransferase (ALT) 28 7-40 U/L Alkaline Phosphatase 76 46-116 U/L Total Protein 6.5 5.7-8.2 g/dL Albumin 4.3 3.2-4.8 g/dL Lipase 38 12-53 U/L Urine Color Yellow Yellow Urine Clarity Clear Clear Urine pH 6.0 5.0-9.0 Urine Specific [place] 1.023 1.001-1.035 Urine Protein Trace H Negative Urine Ketones Negative Negative Urine Blood 2+ H Negative /uL Urine Nitrite Negative Negative Urine Bilirubin Negative Negative Urine Urobilinogen Normal Negative mg/dL Urine Leukocyte Esterase Negative Negative /uL Urine RBC 1 0 - 4 /hpf Urine Microscopic WBC 1 0-5 /HPF Urine Squamous Epithelial Cells Few <5 /hpf Urine Bacteria None seen None Seen /hpf Urine Mucus Few None Seen Urine Glucose Normal Normal mg/dL Urine Test Negative Negative Urine Opiates Screen Neg NEGATIVE Urine Fentanyl Screen Pos NEGATIVE Urine Barbiturates Screen Neg NEGATIVE Urine Phencyclidine Screen Neg NEGATIVE Urine Amphetamines Screen Neg NEGATIVE Urine Benzodiazepines Screen Neg NEGATIVE Urine Cocaine Screen Neg NEGATIVE Urine Cannabinoids Screen Pos NEGATIVE Test 07/06/25 10:58 Range/Units Assessment/Plan Plan complaint of abdominal pain and dirhea for the past 30 days abdomen tender to palpation visible ventral hernia labs , images and reports reviewed and discussed with Dr. Solano Plan: NPO repair of ventral hernia possibly with mesh tomorrow am Plan discussed with: Patient Visit Coding Surgery Date of Service if different f: Jul 07, 2025 Billing Provider: CAROLYN SOLANO MD Surgery Visit Codes: 60352 - INP CONSULT <80 MIN HOLLY RAIN OUTREACH COORDINATOR Jul 07, 2025 13:37
--- NOTE | 2025-07-07 13:57 | DVHHP2 ---
Admitting Diagnosis: Abdominal Pain History of Present Illness HPI Patient is a 44-year-old female with past medical history of colectomy who presents with abdominal pain over the last several days. Patient describes it as sharp and sudden. She also complains of diarrhea for the past 30 days. Patient has had prior hospital admissions for SBO. CT abdomen pelvis was done which did not show an obstruction. It was notable for hernia which did not appear incarcerated. On physical exam, patient did not have any signs of an acute abdomen but did have diffuse tenderness. Patient was admitted for further evaluation by general surgery. Home Meds Active Scripts Tiotropium [place] Monohydrate (Spiriva Respimat) 2.5 Mcg/Act Spr, 2.5 MCG IN DAILY PRN for 30 Days, #1 UNIT 2 Refills Prov:HOLLY CROWE MD 03/28/22 Albuterol Sulfate (Albuterol Sulfate Hfa) 108 Mcg/Act Aer, 108 MCG IN Q4HP PRN for 10 Days, #1 AER Prov:HOLLY CROWE MD 03/28/22 Past Medical History Others herniated disc Patient Family History: Diabetes mellitus G8 MOTHER Ischemic heart disease G8 MOTHER Review of Systems Gastrointestinal: Abdominal Pain, Diarrhea H&P Exam Vital Signs Vital Signs Date Time Temp Pulse Resp B/P (MAP) Pulse Ox O2 Delivery O2 Flow Rate FiO2 07/07/25 13:03 80 18 129/85 07/07/25 13:00 98.5 97 98.5 07/07/25 08:00 Room Air* 0 21 General Appeara: Mild distress Neuro/Mental St: Alert SEPSIS Sepsis Screen Date sepsis recognized/suspect: Jul 06, 2025 Time Sepsis recognized/suspect: 1630 Recent Procedure: No On Antibiotic Therapy: No Respiratory Rate >20: No Heart Rate >90: No Temp<36 C (96.8 F) or >38.3 C: No SBP <90 or MAP <65 mmHG: No New Acute Mental Status Change: No Is the patient on CPAP, BIPAP,: No Physician Orders Small Bowel Series-W Gastrogra (07/07/25 07:47) Npo (Nothing By Mouth) Diet (07/07/25 Breakfast) Sodium Chloride 0.9% (07/07/25 12:15) PTPTT (07/07/25 13:27) Type And Screen (07/07/25 13:27) Obtain Consent For: (07/07/25 13:37) Vital Signs Date Time Temp Pulse Resp B/P (MAP) Pulse Ox O2 Delivery O2 Flow Rate FiO2 07/07/25 13:03 80 18 129/85 07/07/25 13:00 98.5 85 16 131/89 (103) 97 98.5 07/07/25 09:31 85 18 131/89 07/07/25 09:01 83 18 129/88 07/07/25 09:00 98.2 83 16 129/88 (102) 97 98.2 07/07/25 08:00 66 07/07/25 08:00 99 Room Air* 0 21 07/07/25 06:12 75 15 133/60 Labs/Xrays Labs Test 07/07/25 08:50 07/06/25 17:29 07/06/25 14:33 07/06/25 14:22 Range/Units Beta HCG, Quantitative 0.1 L 1.5-4.2 mIU/mL Lactic Acid Level 0.8 0.4-2.0 mmol/L White Blood Count 8.9 4.4-10.8 10^3/uL Red Blood Count 4.94 4.0-5.20 10^6/uL Hemoglobin 15.2 12.2-16.2 g/dL Hematocrit 43.8 36.0-46.0 % Mean Corpuscular Volume 88.7 80.0-100.0 fL Mean Corpuscular Hemoglobin 30.9 28.0-32.0 pg Mean Corpuscular Hemoglobin Concent 34.8 32.0-36.0 g/dL Red Cell Distribution Width 15.3 H 11.8-14.3 % Platelet Count 476 H 140-450 10^3/uL Mean Platelet Volume 7.1 6.9-10.8 fL Neutrophils (%) (Auto) 63.1 37.0-80.0 % Lymphocytes (%) (Auto) 27.7 10.0-50.0 % Monocytes (%) (Auto) 6.6 0.0-12.0 % Eosinophils (%) (Auto) 2.0 0.0-7.0 % Basophils (%) (Auto) 0.6 0.0-2.0 % Neutrophils # (Auto) 5.6 1.6-8.6 10 ^3/uL Lymphocytes # (Auto) 2.5 0.4-5.4 10 ^3/uL Monocytes # (Auto) 0.6 0-1.3 10 ^3/uL Eosinophils # (Auto) 0.2 0-0.8 10 ^3/uL Basophils # (Auto) 0.1 0-0.2 10 ^3/uL Nucleated Red Blood Cells 0.3 % Sodium Level 143 136-145 mmol/L Potassium Level 3.4 L 3.5-5.1 mmol/L Chloride Level 108 H 98-107 mmol/L Carbon Dioxide Level 23 20-31 mmol/L Anion Gap 12 5-15 Blood Urea Nitrogen 7 L 9-23 mg/dL Creatinine 0.73 0.550-1.02 mg/dL Glomerular Filtration Rate Calc 103 >90 mL/min BUN/Creatinine Ratio 9.6 L 10.0-20.0 Serum Glucose 122 H 74-106 mg/dL Calcium Level 9.0 8.7-10.4 mg/dL Total Bilirubin 0.6 0.2-1.0 mg/dL Aspartate Amino Transferase (AST) 24 13-40 U/L Alanine Aminotransferase (ALT) 28 7-40 U/L Alkaline Phosphatase 76 46-116 U/L Total Protein 6.5 5.7-8.2 g/dL Albumin 4.3 3.2-4.8 g/dL Lipase 38 12-53 U/L Urine Color Yellow Yellow Urine Clarity Clear Clear Urine pH 6.0 5.0-9.0 Urine Specific [place] 1.023 1.001-1.035 Urine Protein Trace H Negative Urine Ketones Negative Negative Urine Blood 2+ H Negative /uL Urine Nitrite Negative Negative Urine Bilirubin Negative Negative Urine Urobilinogen Normal Negative mg/dL Urine Leukocyte Esterase Negative Negative /uL Urine RBC 1 0 - 4 /hpf Urine Microscopic WBC 1 0-5 /HPF Urine Squamous Epithelial Cells Few <5 /hpf Urine Bacteria None seen None Seen /hpf Urine Mucus Few None Seen Urine Glucose Normal Normal mg/dL Urine Test Negative Negative Urine Opiates Screen Neg NEGATIVE Urine Fentanyl Screen Pos NEGATIVE Urine Barbiturates Screen Neg NEGATIVE Urine Phencyclidine Screen Neg NEGATIVE Urine Amphetamines Screen Neg NEGATIVE Urine Benzodiazepines Screen Neg NEGATIVE Urine Cocaine Screen Neg NEGATIVE Urine Cannabinoids Screen Pos NEGATIVE Test 07/06/25 10:58 Range/Units Microbiology Date/Time Source Procedure Growth Status 07/07/25 03:33 Nose MRSA Screen - Final Complete Assessment/Plan Primary Diagnosis 1. Abdominal Likely due to Hernia 2. history of colectomy Plan - Admit to [facility] - General Surgery, Dr. Tafoya consulted - Small bowel series ordered. Normal - N.p.o. at midnight with anticipated hernia repair with mesh placement on 07/08 - Pain medications listed per MAR - Daily CBC and BMP - Full code Plan discussed with: Patient LEAHGEOVANIKENIA Cornell DO Jul 07, 2025 13:57
[2025-07-07 15:16] LABS: INR 0.97 (0.9-1.15); Partial Thromboplastin Time 26.7 SEC (24.5-34.5); Prothrombin Time 10.3 sec (9.3-11.8)
[2025-07-08] VITALS (7 sets, daily range): BP systolic 109–134; BP diastolic 74–87; PULSE 78–96; RESP 13–19; TEMP 97.6–98.1; O2SAT 93–98
[2025-07-08] MEDS ORDERED: MIDAZOLAM HCL 2MG/2ML 2ml VIAL (1mg/ml) ONE (07:27)
[2025-07-08] MEDS ORDERED: MEPERIDINE HCL (25 MG/ML) 1ML VIAL ONE (07:27)
[2025-07-08] MEDS ORDERED: fentaNYL CITRATE 100 MCG/2 ML VL ONE (07:27)
[2025-07-08] MEDS: ceFAZolin 2 GM/D5W50ml 50 ML IV ONE (07:30)
[2025-07-08] MEDS ORDERED: PROPOFOL 10 MG/ML 20 ML IV ONE (07:59)
[2025-07-08] MEDS ORDERED: ONDANSETRON HCL 4 MG/2 ML VIAL ONE (07:59)
--- NOTE | 2025-07-08 08:14 | DVHPN2 ---
Progress Note Date Seen: Jul 08, 2025 Has the PT tested + for MRSA If YES, has PT been informed?: No Medical Necessity Reason Pt with a Central, PICC or Fol: No Subjective Patient reports: No new complaints Review of Systems: HEENT:Normal, RESPIRATORY:Normal, GI:Abnormal Objective vital signs Vital Sign Date Time Temp Pulse Resp B/P (MAP) Pulse Ox O2 Delivery O2 Flow Rate FiO2 07/08/25 06:04 82 18 135/79 07/08/25 05:00 97.6 97 97.6 07/07/25 20:00 Room Air* 0 21 Total Intake and Output 07/07/25 07/07/25 07/08/25 15:00 23:00 07:00 Intake Total 500 ml 500 ml Balance 500 ml 500 ml medications Current Medications Medications Dose Ordered Sig/Silvia Route Start Time Stop Time Status Last Admin Dose Admin Sodium Chloride 10 ml Q8HR IV 07/06/25 22:00 07/08/25 06:11 10 ML Acetaminophen 325 mg Q4HP PRN PO 07/06/25 21:00 Acetaminophen/ Hydrocodone Bitart 1 tab Q4HP PRN PO 07/06/25 21:00 07/08/25 04:38 1 TAB Temazepam 15 mg QHSP PRN PO 07/06/25 21:00 Ondansetron HCl 4 mg Q4HP PRN IV 07/06/25 21:00 Morphine Sulfate 2 mg Q4HPRN PRN IV 07/06/25 21:00 UNV Nitroglycerin 0.4 mg Q5MINP PRN SL 07/06/25 21:00 Hydromorphone HCl 0.5 mg Q3HP PRN IV 07/06/25 21:00 07/08/25 05:34 0.5 MG Sodium Chloride 1,000 ml @ 120 mls/hr Q8H20M IV 07/07/25 12:15 07/07/25 20:35 120 MLS/HR Examination: GENERAL:Normal, LUNGS:Normal, ABDOMEN:Abnormal laboratory and microbiology Laboratory Tests 07/06/25 14:33 Test 07/06/25 14:33 Range/Units Serum Glucose 122 H 74-106 mg/dL Problem List/Assessment/Plan Problem List/Assessment/Plan 1) Ventral hernia 2) Hx of colectomy plan; OR today for hernia repair with surgery, continue all care, daily labs, will follow with surgery post-op Plan discussed with: Other (n) GERARDO JARAMILLO MD Jul 08, 2025 08:14
[2025-07-08] MEDS: BUPIVACAINE 0.5% P/F INJ 10 ML VIAL ONE (08:15)
[2025-07-08] MEDS: LIDOCAINE W/ EPINEPHRINE 1% 20ML VIAL ONE (08:15)
[2025-07-08] MEDS ORDERED: SUGAMMADEX 200mg/2ml Vial (100MG/ML) IV ONE (08:30)
[2025-07-08] MEDS: ACETAMINOPHEN IV 1000 MG/100ML (10MG/ML) IV ONE (08:54)
[2025-07-08] MEDS: HYDROmorphone HCL 2 MG/ML VL/or syr IV PRN (08:54)
[2025-07-08] MEDS ORDERED: ONDANSETRON HCL 4 MG/2 ML VIAL IV PRN (09:00)
[2025-07-08] MEDS ORDERED: MORPHINE SULFATE 4 MG/ML SYR/VIAL IV PRN (09:00)
[2025-07-08] MEDS ORDERED: MIDAZOLAM HCL 2MG/2ML 2ml VIAL (1mg/ml) IV PRN (09:00)
[2025-07-08] MEDS ORDERED: hydrALAZINE HCL 20 MG/ML VL IV PRN (09:00)
[2025-07-08] MEDS: SUCCINYLCHOLINE CHLORIDE 20 MG/ML 10ML VIAL IV ONE (09:03)
[2025-07-08] MEDS: GASTROGRAFIN 120 ML SOL ONE (09:03)
[2025-07-08] MEDS: ACETAMINOPHEN IV 100 ML IV ONE (09:04)
[2025-07-08] MEDS: HYDROmorphone HCL 2 MG/ML VL/or syr ONE (09:04)
[2025-07-08] MEDS: LIDOCAINE 2% JELLY 11ml (GLYDO) ONE (09:04)
--- NOTE | 2025-07-08 09:25 | DVHOP ---
DATE OF SURGERY: 07/08/2025 PREOPERATIVE DIAGNOSIS: Ventral hernia. POSTOPERATIVE DIAGNOSIS: Incarcerated ventral hernia and adhesions. SURGEON: Terrell Solano MD DIE REPAIRER FORGING: Lester Miguel NP ANESTHESIA: General endotracheal. ANESTHESIOLOGIST: Mr. Armstrong PROCEDURE: Release of incarcerated ventral hernia, lysis of adhesions, and repair of ventral hernia. DESCRIPTION OF PROCEDURE: Under general endotracheal anesthesia with the patient's skin prepped and draped, an incision was made through a scar above the umbilicus from previous abdominal surgeries. The scar was incised and deepened with electrocautery through a meager amount of subcutaneous adipose tissue. There was an incarcerated loop of small bowel which was tensely distended and adherent to the subcutaneous tissues and the fascia. This was carefully released by lysis of adhesions. Subsequently, the bowel was reduced into the peritoneal cavity. The surface of the inner aspect of the rectus muscle was underswept by blunt finger dissection in order to avoid any injury to bowel with repair of the hernia. The defect of the hernia measured approximately 3 cm in diameter. It was grasped with Shahana clamps. The small bowel was swept away from the anterior aspect of the rectus muscle on numerous occasions, attempting to avoid any impingement. Subsequently, the sac of the hernia was excised and submitted and the edges of the hernia defect were grasped with Shahana clamps. A horizontal repair of the vertical incision ensued using #1 double-stranded Prolene suture creating a crest with a horizontal mattress suture and then subsequently the crest was reinforced with numerous #1 Tevdek sutures. The wound was subsequently irrigated. Irrigant was aspirated. Hemostasis was meticulously accomplished. Skin and subcutaneous tissues were approximated using Monocryl sutures, Dermabond glue, and Steri-Strips. The patient remained stable throughout the procedure, left the operating room following an accurate needle and sponge count. Her , Rian, was informed at [phone]. Terrell Solano MD PF/KAYLA TID: [id number] RECEIPT: [id number]
[2025-07-08 11:51] LABS: Potassium 3.7 mmol/L (3.5-5.1); Sodium 143 mmol/L (136-145)
[2025-07-08 11:52] LABS: Anion Gap 9 (5-15); Carbon Dioxide 25 mmol/L (20-31)
[2025-07-08 11:57] LABS: Glucose 95 mg/dL (74-106)
[2025-07-08 12:02] LABS: Hematocrit 37.3 % (36.0-46.0); Hemoglobin 13.3 g/dL (12.2-16.2); Mean Corpuscular Hemoglobin 31.7 pg (28.0-32.0); Mean Corpuscular Volume 89.1 fL (80.0-100.0); Nucleated Red Blood Cells % 0.0 %
[2025-07-08 12:03] LABS: BUN/Creatinine Ratio 9.1 (10.0-20.0); Blood Urea Nitrogen < 5 mg/dL (9-23); Chloride 109 mmol/L (98-107)
[2025-07-08 12:04] LABS: Calcium 8.4 mg/dL (8.7-10.4)
[2025-07-09 01:00] VITALS: BP 115/82; PULSE 90; RESP 19; TEMP 98.1; O2SAT 96
[2025-07-09 05:00] VITALS: BP 124/90; PULSE 86; RESP 19; TEMP 97.9; O2SAT 99
[2025-07-09 05:23] LABS: Hematocrit 36.5 % (36.0-46.0); Hemoglobin 12.7 g/dL (12.2-16.2); Mean Corpuscular Hemoglobin 31.4 pg (28.0-32.0); Mean Corpuscular Volume 90.0 fL (80.0-100.0); Nucleated Red Blood Cells % 0.1 %
[2025-07-09 05:37] LABS: Anion Gap 11 (5-15); Carbon Dioxide 23 mmol/L (20-31); Sodium 143 mmol/L (136-145)
[2025-07-09 05:39] LABS: Calcium 8.4 mg/dL (8.7-10.4); Chloride 109 mmol/L (98-107); Potassium 3.4 mmol/L (3.5-5.1)
[2025-07-09 05:43] LABS: BUN/Creatinine Ratio 10.0 (10.0-20.0); Blood Urea Nitrogen < 5 mg/dL (9-23); Glucose 104 mg/dL (74-106)
[2025-07-09 08:00] VITALS: O2SAT 99
[2025-07-09 09:00] VITALS: BP 114/68; PULSE 103; RESP 20; TEMP 97.4; O2SAT 95
--- NOTE | 2025-07-09 09:32 | DVHDS2 ---
New Physician D'charge PN Admitting Diagnosis Admitting Diagnosis ventral hernia Discharge Diagnosis ventral hernia s/p surgical repair Operations or Procedures release of incarcerated ventral hernia and repair Reason(s) For Hospitalization Surgery Hospital Course 44 F who comes to ER with abdominal pain. Her CT abdomen revealed an incarcerated ventral hernia, please refer to the CT report for more details.. She was admitted to the hospital and surgery was consulted. Her CBC and chem panel were nml. Surgery saw her and she consented for hernia repair and underwent release of incarcerated ventral hernia, CORINE and repair of ventral hernia on 07/08. This AM she is doing well and her diet has been ordered for full liquid and advance as tolerated as per surgery recommendations. She will be discharged home once she is tolerating solid diet and cleared by surgery. Eula to arrange for all outpt follow up. Treatment Plan Discharge Condition of Discharge Good Disposition Home Discharge Instructions Diet: Cardiac 2g Na,low cholest Activity: No Restrictions, As Tolerated Medications: see med sheet Follow Up Care Follow Up/Referral: pcp surgery Discharge Statement: "Patient was advised to return to the ER or call 911 if any headaches, dizziness, shortness of breath, chest pain, abdominal pain, bleeding, fevers, or worsening of medical condition. Patient was counseled about treatment plan, medications, possible side effects, patientverbalized understanding. All questions were answered to the best of my ability. This discharge took greater then 30 minutes in planning, reviewing documentation, counseling the patient, and discussing with other team members." GERARDO JARAMILLO MD Jul 09, 2025 09:31
[2025-07-09 11:47] VITALS: BP 114/68; PULSE 103; RESP 20; TEMP 97.4; O2SAT 95
--- NOTE | 2025-07-09 12:01 | DVHPN2 ---
Progress Note Date Seen: Jul 09, 2025 Has the PT tested + for MRSA If YES, has PT been informed?: No Medical Necessity Reason Pt with a Central, PICC or Fol: No Objective vital signs Vital Sign Date Time Temp Pulse Resp B/P (MAP) Pulse Ox O2 Delivery O2 Flow Rate FiO2 07/09/25 11:10 98 17 125/80 07/09/25 09:00 97.4 95 97.4 07/09/25 08:00 Room Air* 0 21 Total Intake and Output 07/08/25 07/08/25 07/09/25 15:00 23:00 07:00 Intake Total 50 ml 200 ml 0 ml Balance 50 ml 200 ml 0 ml medications Current Medications Medications Dose Ordered Sig/Silvia Route Start Time Stop Time Status Last Admin Dose Admin Sodium Chloride 10 ml Q8HR IV 07/06/25 22:00 07/09/25 06:38 10 ML Acetaminophen 325 mg Q4HP PRN PO 07/06/25 21:00 Acetaminophen/ Hydrocodone Bitart 1 tab Q4HP PRN PO 07/06/25 21:00 07/08/25 18:10 1 TAB Temazepam 15 mg QHSP PRN PO 07/06/25 21:00 Ondansetron HCl 4 mg Q4HP PRN IV 07/06/25 21:00 Morphine Sulfate 2 mg Q4HPRN PRN IV 07/06/25 21:00 UNV Nitroglycerin 0.4 mg Q5MINP PRN SL 07/06/25 21:00 Hydromorphone HCl 0.5 mg Q3HP PRN IV 07/06/25 21:00 07/09/25 11:10 0.5 MG Sodium Chloride 1,000 ml @ 120 mls/hr Q8H20M IV 07/07/25 12:15 07/08/25 22:32 120 MLS/HR laboratory and microbiology Laboratory Tests 07/09/25 04:46 Test 07/09/25 04:46 Range/Units Serum Glucose 104 74-106 mg/dL Problem List/Assessment/Plan Problem List/Assessment/Plan 07/09/25 feels very well, all pre op pain is gone, no nausea afebrile, wound ok, instructions given ok to discharge rtc in two weeks Plan discussed with: Patient, Spouse CAROLYN GOLDSTEIN MD Jul 09, 2025 12:01
[2025-07-09 13:00] VITALS: BP 128/85; PULSE 106; RESP 18; TEMP 99.4; O2SAT 96
== END 2025-07-09 15:03 | disposition home or self-care (01) | DRG 355 ==
LOC: ER 13:44 → OVERFLOW 20:52 → EAST 07-07 01:45
PROVIDERS: ADMIT Student in an Organized Health Care Education/Training Program; ATTEND Student in an Organized Health Care Education/Training Program
PROC: 0WQF0ZZ Repair Abdominal Wall, Open Approach (ICD-10-PCS; principal; 2025-07-08 07:26)
DX: K43.6 Other and unspecified ventral hernia with obstruction, without gangrene (principal); E11.9 Type 2 diabetes mellitus without complications; G89.29 Other chronic pain; I25.9 Chronic ischemic heart disease, unspecified; J45.909 Unspecified asthma, uncomplicated; M54.50 Low back pain, unspecified; Z87.891 Personal history of nicotine dependence; Z90.49 Acquired absence of other specified parts of digestive tract
CPT/HCPCS: 36415; 74177; 74250; 80048; 80053; 80307; 81001; 81025; 83605; 83690; 84702; 85025; 85048; 85610; 85730; 86850; 86900; 86901; 87045; 87081; 87177; 87427; 87493; 96361; 96365; 96375; G0378; J0131; J0330; J1100; J1885; J2003; J2250; J2405; J2704; J3490